=== PATIENT | female | born 1930 | race Asian ===

== ENCOUNTER 2017-02-03 13:46 | Inpatient (IN) | payer MEDICARE, OTHER ==
[~2017-02-03] VITALS: Ht 152.4 cm; Wt 63.5 kg
[2017-02-03] MEDS ORDERED: Acetaminophen 650 MG SUPP RECTAL ONE ×2 (13:55→14:15)
--- NOTE | 2017-02-03 13:57 | Emergency Room Report ---
History of Present Illness General Chief Complaint: Dyspnea/Respdistress Source: Patient Present Illness HPI The patient is a 86-year-old female sent in by fpc for increased difficulty breathing and fever. Patient had been brought in by EMS. Patient had been noted be febrile with a temperature of 103. She had reportedly been having increased difficulty breathing or started on supplemental oxygen by paramedics. The patient was reportedly DO NOT RESUSCITATE. The patient had a fever since earlier in the day. Patient was followed at [facility]. Dr. Dave had previously contact hospital regarding the patient. Allergies: Coded Allergies: No Known Allergies (Unverified , 02/03/17) Patient History Past Medical History: see triage record Reviewed Nursing Documentation: PMH: Agreed, PSxH: Agreed Review of Systems All Other Systems: negative except mentioned in HPI Physical Exam Vital Signs Date Time Temp Pulse Resp B/P Pulse Ox O2 Delivery O2 Flow Rate FiO2 02/03/17 13:46 132 25 82/40 90 Non-Rebreather 15.0 General Appearance: alert, severe distress, Chronically Ill, Stupor ENT: normal pharynx Neck: supple, thyroid normal Respiratory: respiratory distress Cardiovascular #1: tachycardia, edema Gastrointestinal: normal inspection, soft Musculoskeletal: decreased range of motion Neurologic: aphasia, motor weakness Psychiatric: normal inspection, no delusions Skin: normal inspection, normal color Procedures Critical Care Time Critical Care Time Patient had a critical medical condition which untreated could potentially result in life or limb threatening injury. Total critical care time excluding procedures approximately 45 minutes. Medical Decision Making Diagnostic Impression: Primary Impression: Severe sepsis Additional Impressions: Lactic acidosis Hyperglycemia ER Course Patient presented for fever shortness of breath. Differential diagnosis included wasn't limited to pneumonia, pulmonary embolism, severe sepsis, urinary tract infection, osteomyelitis among others.Because of complexity of patient's case laboratory testing and imaging studies were ordered. EKG interpretation sinus tachycardia R [address] changes which are likely related to patient's rate. The patient was given Tylenol. A blood cultures and lactic acid are obtained. Patient was given empiric IV antibiotics.She started on BiPAP.Dr. Dave was contacted for inpatient managementPatient was noted to have markedly elevate blood sugar and was given IV insulin. Laboratory testing was notable for sugar greater than 900 Labs Test 02/03/17 14:00 02/03/17 15:30 White Blood Count 15.3 K/UL (4.8-10.8) Red Blood Count 4.77 M/UL (4.20-5.40) Hemoglobin 15.9 G/DL (12.0-16.0) Hematocrit 48.5 % (37.0-47.0) Mean Corpuscular Volume 102 FL (80-99) Mean Corpuscular Hemoglobin 33.4 PG (27.0-31.0) Mean Corpuscular Hemoglobin Concent 32.8 G/DL (32.0-36.0) Red Cell Distribution Width 11.5 % (11.6-14.8) Platelet Count 161 K/UL (150-450) Mean Platelet Volume 8.4 FL (6.5-10.1) Neutrophils (%) (Auto) 84.2 % (45.0-75.0) Lymphocytes (%) (Auto) 9.3 % (20.0-45.0) Monocytes (%) (Auto) 6.2 % (1.0-10.0) Eosinophils (%) (Auto) 0.0 % (0.0-3.0) Basophils (%) (Auto) 0.2 % (0.0-2.0) Sodium Level 145 mEQ/L (135-145) Potassium Level 5.2 mEQ/L (3.4-4.9) Chloride Level 103 mEQ/L (98-107) Carbon Dioxide Level 19 mEQ/L (20-30) Anion Gap 23 (5-15) Blood Urea Nitrogen 62 mg/dL (7-23) Creatinine 2.0 mg/dL (0.5-0.9) Estimat Glomerular Filtration Rate mL/min (>60) Glucose Level 953 mg/dL (74-106) Hemoglobin A1c 11.1 % (< 6.0) Calcium Level 9.8 mg/dL (8.6-10.2) Phosphorus Level 4.4 mg/dL (2.5-4.8) Magnesium Level 2.8 mg/dL (1.7-2.5) Total Bilirubin 1.2 mg/dL (0.0-1.2) Direct Bilirubin 0.3 mg/dL (0.1-0.3) Aspartate Amino Transf (AST/SGOT) 30 U/L (5-40) Alanine Aminotransferase (ALT/SGPT) 26 U/L (3-33) Alkaline Phosphatase 95 U/L (35-104) Total Creatine Kinase 301 U/L (26-140) Creatine Kinase MB 3.7 ng/mL (< 3.8) Creatine Kinase MB Relative Index 1.2 Troponin I < 0.30 ng/mL (<=0.30) Pro-B-Type Natriuretic Peptide 3632 pg/mL (0-450) Total Protein 8.4 g/dL (6.6-8.7) Albumin 4.4 g/dL (3.5-5.2) Globulin 4.0 g/dL Albumin/Globulin Ratio 1.1 (1.0-2.7) Urine Color Pale yellow Urine Appearance Clear Urine pH 5 (4.5-8.0) Urine Specific [place] 1.010 (1.005-1.035) Urine Protein Negative (NEGATIVE) Urine Glucose (UA) 4+ (NEGATIVE) Urine Ketones Negative (NEGATIVE) Urine Occult Blood 1+ (NEGATIVE) Urine Nitrite Negative (NEGATIVE) Urine Bilirubin Negative (NEGATIVE) Urine Urobilinogen Normal MG/DL (0.0-1.0) Urine Leukocyte Esterase Negative (NEGATIVE) Urine RBC 0-2 /HPF (0 - 2) Urine WBC 0-2 /HPF (0 - 2) Urine Squamous Epithelial Cells Occasional /LPF Urine Bacteria Occasional /HPF (NONE) Lactic Acid Level 3.00 mmol/L (0.66-2.22) EKG Diagnostic Results Rate: tachycardiac Rhythm: NSR ST Segments: no acute changes ASA given to the pt in ED: No Rhythm Strip Diag. Results EP Interpretation: yes Rhythm: no PVC's, no ectopy, other - sinus tachycardia Last Vital Signs Date Time Temp Pulse Resp B/P Pulse Ox O2 Delivery O2 Flow Rate FiO2 02/03/17 13:46 132 25 82/40 90 Non-Rebreather 15.0 Status: unchanged Disposition: ADMITTED INPATIENT Condition: Critical Guillermo Cox Feb 03, 2017 13:57
[2017-02-03] MEDS ORDERED: Cefepime 1gm vial ONE (13:58)
[2017-02-03] MEDS ORDERED: metroNIDAZOLE 500mg 100 ML IV SCH (14:00)
[2017-02-03] MEDS ORDERED: Vancomycin 1 GM in NS 275 ML IV ONE (14:00)
[2017-02-03] MEDS ORDERED: Cefepime HCl 1 GM in NS 55 ML IV SCH (14:00)
[2017-02-03] MEDS ORDERED: FLEET ENEMA133 ML RECTAL (14:04)
[2017-02-03] MEDS ORDERED: DUONEB 0.5-3(2.53 ML HHN (14:04)
[2017-02-03] MEDS ORDERED: DULCOLAX10 MG RC (14:04)
[2017-02-03] MEDS ORDERED: DOCUSATE SODIU100 MG ORAL (14:04)
[2017-02-03] MEDS ORDERED: ATORVASTATIN CA20 MG ORAL (14:04)
[2017-02-03] MEDS ORDERED: MILK OF MA2400 MG/10 ORAL (14:06)
[2017-02-03] MEDS ORDERED: IBUPROFEN200 MG ORAL (14:06)
[2017-02-03] MEDS ORDERED: LOSARTAN POTASS25 MG ORAL (14:06)
[2017-02-03] MEDS ORDERED: NORCO 5-325 TA1 EAC1 ORAL (14:07)
[2017-02-03] MEDS ORDERED: ROBITUSSIN COU237 M1 PO (14:07)
[2017-02-03] MEDS ORDERED: MULTIVITAMINS1 EAC8 ORAL (14:07)
[2017-02-03] MEDS ORDERED: NAMENDA10 MG ORAL (14:07)
[2017-02-03] MEDS ORDERED: ACETAMINOPHEN325 M1 ORAL (14:08)
[2017-02-03] MEDS ORDERED: Vancomycin 1gm inj IVPB ONE (14:23)
[2017-02-03 14:35] LABS: BASOPHILS % (AUTO) 0.2 % (0.0-2.0); LYMPHOCYTES % (AUTO) 9.3 % (20.0-45.0); MEAN CORPUSCULAR HEMOGLOBIN 33.4 PG (27.0-31.0); MEAN CORPUSCULAR HGB CONC 32.8 G/DL (32.0-36.0); MEAN CORPUSCULAR VOLUME 102 FL (80-99); MEAN PLATELET VOLUME 8.4 FL (6.5-10.1); MONOCYTES % (AUTO) 6.2 % (1.0-10.0); NEUTROPHILS % (AUTO) 84.2 % (45.0-75.0); PLATELET COUNT 161 K/UL (150-450); RED BLOOD COUNT 4.77 M/UL (4.20-5.40); RED CELL DISTRIBUTION WIDTH 11.5 % (11.6-14.8); WHITE BLOOD COUNT 15.3 K/UL (4.8-10.8)
[2017-02-03 14:49] LABS: TROPONIN I < 0.30 ng/mL (<=0.30)
[2017-02-03 14:54] LABS: ALANINE AMINOTRANSFERASE 26 U/L (3-33); ASPARTATE AMINO TRANSFERASE 30 U/L (5-40); CALCIUM 9.8 mg/dL (8.6-10.2); CHLORIDE 103 mEQ/L (98-107); PHOSPHORUS 4.4 mg/dL (2.5-4.8); POTASSIUM 5.2 mEQ/L (3.4-4.9); REFLEX LACTIC ACID YES OR NO YES; SODIUM 145 mEQ/L (135-145)
--- NOTE | 2017-02-03 14:54 | Diagnostic Imaging Report ---
Indication: Dyspnea Comparison: None A single view chest radiograph was obtained. Findings: Heart size is normal. Aorta is ectatic. Bones are osteopenic. Interstitial prominence noted centrally. No definite airspace disease identified. Impression: No acute disease
[2017-02-03 14:55] VITALS: BP 143/82
[2017-02-03 15:02] LABS: ALBUMIN/GLOBULIN RATIO 1.1 (1.0-2.7); ANION GAP 23 (5-15); CARBON DIOXIDE 19 mEQ/L (20-30); MAGNESIUM 2.8 mg/dL (1.7-2.5); TOTAL PROTEIN 8.4 g/dL (6.6-8.7)
[2017-02-03] MEDS ORDERED: NS 1000ml 1,900 ML IVLG ONE (15:15)
[2017-02-03 15:16] LABS: CKMB 3.7 ng/mL (< 3.8)
[2017-02-03 15:36] LABS: BILIRUBIN,DIRECT 0.3 mg/dL (0.1-0.3); HEMOLYSIS 8
[2017-02-03 15:53] LABS: APPEARANCE,URINE CLEAR; KETONES,URINE NEGATIVE (NEGATIVE); LEUKOCYTE ESTERASE ,URINE NEGATIVE (NEGATIVE); NITRITE,URINE NEGATIVE (NEGATIVE); PH,URINE 5 (4.5-8.0); PROTEIN,URINE NEGATIVE (NEGATIVE); UROBILINOGEN,URINE NORMAL MG/DL (0.0-1.0)
[2017-02-03 16:12] LABS: RBC,URINE 0-2 /HPF (0 - 2)
[2017-02-03 16:13] LABS: BACTERIA,URINE OCCASIONAL /HPF; SQUAMOUS EPITHELIAL CELL,UR OCCASIONAL /LPF (NONE/OCC); WBC,URINE 0-2 /HPF (0 - 2)
[2017-02-03 16:59] VITALS: BP 103/58
[2017-02-03 17:00] VITALS: BP 94/57
[2017-02-03 20:00] VITALS: BP 98/45
[2017-02-03] MEDS ORDERED: Digoxin 0.5mg/2ml Inj IVP ONE (21:15)
[2017-02-03] MEDS ORDERED: NS 250 ML IVPB ONE (21:15)
[2017-02-03] MEDS: Vitamin A&D Oint 2oz Tube TOPIC SCH (21:38)
[2017-02-03] MEDS: NovoLOG Insulin Flexpen SUBQ SCH (22:24)
[2017-02-04] VITALS: BP 154/69
[2017-02-04] MEDS: NovoLOG Insulin Flexpen SUBQ SCH ×7 (01:00→21:17)
[2017-02-04] MEDS: D5 1/2NS 1,000 ML IV SCH ×3 (01:09→17:10)
[2017-02-04] MEDS: Pantoprazole Inj IVP SCH ×2 (01:12→09:10)
[2017-02-04] MEDS: Levemir Flexpen SUBQ SCH ×2 (01:19→21:16)
--- NOTE | 2017-02-04 02:15 | Consultation ---
DATE OF CONSULTATION: 02/03/2017 CARDIOLOGY CONSULTATION CONSULTING PHYSICIAN: Bradly Dave M.D. REQUESTING PHYSICIAN: Harjeet Leija M.D. REASON FOR CONSULTATION: Tachyarrhythmias. HISTORY OF PRESENT ILLNESS: This is an 86-year-old [place] female, who was transferred to the hospital from a half-way facility because of respiratory distress and high fevers. She was febrile to 103 on arrival with tachypnea and hypoxia. Advanced directives for DNR DNI were noted. She was placed on BiPAP support. The patient was treated in the intensive care unit with volume resuscitation. She was pancultured and started on broad-spectrum antibiotics. She continues to have heart rates up to 170 and I have been asked to assist with care. PAST MEDICAL HISTORY: Status post pubic ramus fracture, hypertension, type 2 diabetes mellitus, hyperlipidemia, and cerebrovascular disease with dementia. MEDICATIONS: Prior to admission, reviewed and reconciled in the retirement record. ALLERGIES: None. FAMILY HISTORY: Not known. SOCIAL HISTORY: No record of smoking, alcohol, or substance abuse. REVIEW OF SYSTEMS: Not obtainable from patient. Limited data was obtained from son. Additional data was obtained from review of records x20 minutes. PHYSICAL EXAMINATION: GENERAL: Withdrawn and lethargic on BiPAP support. VITAL SIGNS: Blood pressure 80/40, pulse 165, respiratory rate 25, temperature max 103, and oxygen saturation 98%. LUNGS: Accessory muscle use. Coarse breath sounds with rhonchi. CARDIAC: Regular rhythm. Rapid rate. Normal S1 and S2. ABDOMEN: Soft, slightly tender and distended. EXTREMITIES: With trace edema and decreased capillary refill. No skin breakdown is seen. LABORATORY AND DIAGNOSTIC DATA: White count 15 and hemoglobin 15.9. Lactic acid is 4.1. Glucose 953, BUN 62, creatinine 2.0, bicarbonate 19, sodium 145, and potassium 5.2. Magnesium 2.8. Pro-natriuretic peptide 3632. Albumin 4.4. EKG, sinus tachycardia with nonspecific ST-T wave changes. Monitored rhythm, at times is notable for SVT. IMPRESSION: 1. Hyperosmolar non-ketotic coma. 2. Lactic acidosis. 3. Acute renal failure. 4. Hyperkalemia. 5. Metabolic acidosis. 6. Acute diastolic congestive heart failure. 7. Anemia. 8. Probable sepsis. 9. Hypovolemia. 10. Dehydration. 11. Shock. PLAN: 1. Volume resuscitation. 2. Electrolyte replacement. 3. IV insulin support. 4. No diuresis at this time. 5. Serial lactic acid levels. 6. Start insulin therapy by IV route, followed by subcutaneous therapy. 7. DVT and stress ulcer prophylaxis. 8. Check serial troponin levels. 9. Empiric antibiotics have already been started. 10. Condition remains critical and prognosis is guarded. Bradly Dave M.D. DR: BRIAN JOB#: [id number] CC:
[2017-02-04 04:00] VITALS: BP 100/64
[2017-02-04 05:46] LABS: BASOPHILS % (AUTO) 0.5 % (0.0-2.0); LYMPHOCYTES % (AUTO) 16.9 % (20.0-45.0); MEAN CORPUSCULAR HEMOGLOBIN 33.1 PG (27.0-31.0); MEAN CORPUSCULAR HGB CONC 33.7 G/DL (32.0-36.0); MEAN CORPUSCULAR VOLUME 98 FL (80-99); MONOCYTES % (AUTO) 7.4 % (1.0-10.0); NEUTROPHILS % (AUTO) 75.1 % (45.0-75.0); PLATELET COUNT 136 K/UL (150-450); RED BLOOD COUNT 4.42 M/UL (4.20-5.40); RED CELL DISTRIBUTION WIDTH 11.6 % (11.6-14.8); WHITE BLOOD COUNT 15.1 K/UL (4.8-10.8)
[2017-02-04 06:22] LABS: REFLEX LACTIC ACID YES OR NO YES
[2017-02-04 06:54] LABS: ALANINE AMINOTRANSFERASE 22 U/L (3-33); ALBUMIN/GLOBULIN RATIO 0.9 (1.0-2.7); ANION GAP 16 (5-15); ASPARTATE AMINO TRANSFERASE 35 U/L (5-40); CARBON DIOXIDE 18 mEQ/L (20-30); CHLORIDE 125 mEQ/L (98-107); CREATININE 1.4 mg/dL (0.5-0.9); HEMOLYSIS 7; MAGNESIUM 2.7 mg/dL (1.7-2.5); PHOSPHORUS 1.6 mg/dL (2.5-4.8); SODIUM 159 mEQ/L (135-145); TOTAL PROTEIN 7.4 g/dL (6.6-8.7)
[2017-02-04 07:08] LABS: TROPONIN I 0.43 ng/mL (<=0.30)
[2017-02-04 07:27] LABS: BILIRUBIN,DIRECT 0.2 mg/dL (0.1-0.3)
[2017-02-04 08:00] VITALS: BP 128/72
[2017-02-04] MEDS: Vitamin A&D Oint 2oz Tube TOPIC SCH ×2 (09:10→21:17)
[2017-02-04 09:20] LABS: ABG PCO2 41.3 mmHg (35.0-45.0)
[2017-02-04 09:21] LABS: ABG ALLEN TEST POSITIVE; ABG BASE EXCESS -3.9
--- NOTE | 2017-02-04 11:15 | History and Physical Report ---
DATE OF ADMISSION: 02/03/2017 CHIEF COMPLAINT: Sepsis, respiratory failure, and SVT. HISTORY OF PRESENT ILLNESS: The patient is an elderly female. She has a history of hypertension, diabetes, hyperlipidemia, stroke and dementia. She was transferred from half-way facility with complaints of shortness of breath. She was noted to be afebrile, tachypneic, and hypoxic. On arrival in the emergency room, she was placed on BiPAP for respiratory support. She is a DNR/DNI. The patient was pancultured and was started on broad-spectrum antibiotic therapy. She has been started on IV hydration. She is now admitted for further evaluation and care. The patient's lactic acid level was elevated at 3.8. She also had an elevated troponin 0.23. She has sinus tach on monitor currently. PAST MEDICAL HISTORY: As above. PAST SURGICAL HISTORY: None. CURRENT MEDICATIONS: Reconciled and reviewed. ALLERGIES: None. FAMILY HISTORY: Unknown. SOCIAL HISTORY: There is no known history of tobacco, ethanol, or drugs. REVIEW OF SYSTEMS: Unobtainable as the patient is confused, somnolent, and lethargic. PHYSICAL EXAMINATION: VITAL SIGNS: Temperature was 103.1, pulse 132, respirations 25, and blood pressure 82/40. GENERAL: The patient is chronically appearing female, in no apparent distress. She is awake. She is arousable, but otherwise fairly somnolent and quickly falls back to sleep. HEENT: The oropharynx is clear. Mucous members are dry. NECK: Supple. HEART: Tachycardiac. LUNGS: Significant for scattered rhonchi. ABDOMEN: Soft, nontender, and nondistended. EXTREMITIES: Without clubbing, cyanosis, or edema. LABORATORY AND DIAGNOSTIC DATA: UA was negative. White count 15,000, hemoglobin 15, hematocrit 48, and platelets of 161,000. Sodium is 159, potassium 3, chloride 125, bicarb 18, BUN 51, and creatinine was 1.4. Troponin was 0.43. A1c was 11.1. Lactic acid was 3.8. Chest x-ray was clear. ASSESSMENT: This is an unfortunate elderly female with history of diabetes, hypertension, and stroke admitted with complaints of sepsis, suspect secondary to pneumonia: 1. Sepsis. 2. Shock. 3. Supraventricular tachycardia. 4. Pneumonia. 5. Dehydration. 6. Acute renal failure. PLAN: Aggressive fluid resuscitation with hypotonic fluids. Intravenous antibiotic therapy. Follow up cultures. Continue BiPAP. Continue respiratory treatments. Follow up cultures. Monitor troponin. Cardiology, Pulmonary, and Infectious Disease consultation will be obtained. Harjeet Leija M.D. DR: MORIAH JOB#: [id number] CC:
[2017-02-04 12:00] VITALS: BP 144/85
[2017-02-04 16:00] VITALS: BP 142/79
--- NOTE | 2017-02-04 16:33 | Cardiology Report ---
APPROVED REPORT EKG Measurement Heart [id number] Sinus tachycardia Otherwise normal ECG
[2017-02-04 16:59] LABS: ALANINE AMINOTRANSFERASE 22 U/L (3-33); ALBUMIN/GLOBULIN RATIO 1.1 (1.0-2.7); ANION GAP 9 (5-15); ASPARTATE AMINO TRANSFERASE 35 U/L (5-40); CALCIUM 8.6 mg/dL (8.6-10.2); CARBON DIOXIDE 23 mEQ/L (20-30); CHLORIDE 123 mEQ/L (98-107); HEMOLYSIS 7; SODIUM 155 mEQ/L (135-145); TOTAL PROTEIN 6.3 g/dL (6.6-8.7)
--- NOTE | 2017-02-04 19:00 | Wound Care Consultation ---
Wound Assessment Wound Assessment #1: Wound Present on Admission: Yes New Wound: No Status Change of Wound: No Wound Location Body Site Modif: mid Wound Location Body Site: sacral Wound Type: pressure ulcer Bj Test: Does not Bj Pressure Ulcer Stage: II - scattered Wound Thickness: Partial Thickness Wound Length: 4.5 Wound Width: 4.5 Wound Depth: less than 0.1 Percent of Wound [place]/Red: 100 Wound Drainage Description: Serosanguineous Wound Drainage Amount: Scant Wound Drainage Odor: None/Absent Tissue Surrounding Wound: Erythemic - purple Wound General Appearance: Reddened Wound Assessment #2: Wound Number: #2 Wound Present on Admission: Yes New Wound: No Status Change of Wound: No Wound Location Body Site Modif: left, right Wound Location Body Site: buttocks Wound Type: pressure ulcer Bj Test: Does not Bj Pressure Ulcer Stage: II - scattered Wound Thickness: Partial Thickness Percent of Wound [place]/Red: 100 Wound Drainage Description: Serosanguineous Wound Drainage Amount: Scant Wound Drainage Odor: None/Absent Tissue Surrounding Wound: Erythemic - purple Wound General Appearance: Reddened Wound Assessment #3: Wound Number: #3 Wound Present on Admission: Yes New Wound: No Status Change of Wound: No Wound Location Body Site: perineal area - extended to sacral,left and right buttock Wound Type: rash Bj Test: Does not Bj Percent of Wound [place]/Red: 100 Wound Drainage Amount: None Wound Drainage Odor: None/Absent Tissue Surrounding Wound: Erythemic Wound General Appearance: Reddened Wound Comment #1 Sacral scattered stage II pressure ulcer. Surrounding skin with purple DTI pressure ulcer #2 Right and left buttocks scattered stage II pressure ulcer. Surrounding skin with purple DTI pressure ulcer #3 Rashes on sacral, right and left buttocks. Recommendation -Sacral scattered stage II pressure ulcer. Surrounding skin with purple DTI pressure ulcer and Right and left buttocks scattered stage II pressure ulcer. Surrounding skin with purple DTI pressure ulcer Cleanse with saline, pat dry, apply Triad cream, cover with bordered gauze daily and PRN soiled/dislodged -Rashes on sacral, right and left buttocks Local wound care per protocol for rashes -Keep clean and dry -Turn and reposition -Low air loss SPR mattress -Offload both heels -Heel protector on both heels -Optimize nutrition -Assess and f/u accordingly for any changes FAINA FRANCOIS RN Feb 04, 2017 19:00
[2017-02-04 20:28] VITALS: BP 149/77
[2017-02-05 00:39] VITALS: BP 138/73
--- NOTE | 2017-02-05 01:45 | Progress Note ---
DATE: 02/04/2017 CARDIOLOGY PROGRESS NOTE SUBJECTIVE: The patient is more alert, still withdrawn and lethargic. Still on BiPAP support. Monitored rhythm, sinus tachycardia. OBJECTIVE: VITAL SIGNS: Blood pressure 149/77, pulse 76, and respirations 17. Afebrile. NECK: Jugular venous pressure flat. LUNGS: With coarse breath sounds. CARDIAC: Regular rhythm. Rapid rate. Normal S1 and S2. ABDOMEN: Soft. EXTREMITIES: With trace edema. LABORATORY DATA: White count 15, hemoglobin 14.6. Lactic acid is decreased from 3.8 to 1.7 which is now normal. Albumin 3.3. Sodium 155, potassium 4, chloride 123, bicarb 23, BUN 44, creatinine 1, and glucose 239. IMPRESSION: 1. Hyperosmolar nonketotic coma, improved. 2. Lactic acidosis, resolved. 3. Probable sepsis. 4. Severe dehydration. 5. Hypernatremia. 6. Hyperchloremia. 7. Acute renal failure with prerenal azotemia. 8. Acute myocardial ischemia. 9. Mild protein-calorie malnutrition. 10. Sepsis with shock recovering. PLAN: 1. fluid hydration. 2. Empiric antibiotics. 3. BiPAP support. 4. Replace electrolytes as needed. 5. Repeat troponin level. 6. Add beta-blockade if blood pressure parameters remained stable. 7. DVT and stress ulcer prophylaxis. Bradly Dave M.D. DR: NICOLE JOB#: [id number] CC:
[2017-02-05 04:00] VITALS: BP 139/72
[2017-02-05 05:07] LABS: MEAN CORPUSCULAR HEMOGLOBIN 32.9 PG (27.0-31.0); MEAN CORPUSCULAR HGB CONC 33.5 G/DL (32.0-36.0); MEAN CORPUSCULAR VOLUME 98 FL (80-99); MEAN PLATELET VOLUME 9.8 FL (6.5-10.1); PLATELET COUNT 96 K/UL (150-450); RED BLOOD COUNT 3.96 M/UL (4.20-5.40); RED CELL DISTRIBUTION WIDTH 11.5 % (11.6-14.8); WHITE BLOOD COUNT 10.4 K/UL (4.8-10.8)
[2017-02-05 05:42] LABS: ALANINE AMINOTRANSFERASE 21 U/L (3-33); ALBUMIN/GLOBULIN RATIO 1.2 (1.0-2.7); ANION GAP 10 (5-15); ASPARTATE AMINO TRANSFERASE 32 U/L (5-40); CALCIUM 8.3 mg/dL (8.6-10.2); CARBON DIOXIDE 23 mEQ/L (20-30); CHLORIDE 117 mEQ/L (98-107); CREATININE 0.8 mg/dL (0.5-0.9); HEMOLYSIS 7; POTASSIUM 3.6 mEQ/L (3.4-4.9); SODIUM 150 mEQ/L (135-145); TOTAL PROTEIN 5.8 g/dL (6.6-8.7)
[2017-02-05 05:45] LABS: TROPONIN I < 0.30 ng/mL (<=0.30)
[2017-02-05] MEDS: NovoLOG Insulin Flexpen SUBQ SCH ×4 (06:21→20:18)
[2017-02-05 08:00] VITALS: BP_SYST 136; BP_SYST 168; BP_DIAS 71; BP_DIAS 75
--- NOTE | 2017-02-05 08:10 | General Progress Note ---
Assessment/Plan Problem List: (1) Aspiration pneumonia ICD Codes: J69.0 - Pneumonitis due to inhalation of food and vomit SNOMED: 833487198 (2) Hypernatremia ICD Codes: E87.0 - Hyperosmolality and hypernatremia SNOMED: 48244307 (3) Respiratory failure ICD Codes: J96.90 - Respiratory failure, unspecified, unspecified whether with hypoxia or hypercapnia SNOMED: 692353305 (4) Lactic acidosis ICD Codes: E87.2 - Acidosis SNOMED: 09657386 (5) Hyperglycemia ICD Codes: R73.9 - Hyperglycemia, unspecified SNOMED: 16470155 (6) Severe sepsis ICD Codes: A41.9 - Sepsis, unspecified organism; R65.20 - Severe sepsis without septic shock SNOMED: 37900338 Status: stable, progressing Assessment/Plan check abg dc trinh iv abx ivf follow cultures check swallow Subjective ROS Limited/Unobtainable: Yes Constitutional: Reports: malaise, weakness HEENT: Reports: no symptoms Cardiovascular: Reports: no symptoms Respiratory: Reports: cough, shortness of breath, sputum Gastrointestinal/Abdominal: Reports: no symptoms Genitourinary: Reports: no symptoms Neurologic/Psychiatric: Reports: pre-existing deficit Endocrine: Reports: no symptoms Hematologic/Lymphatic: Reports: anemia Allergies: Coded Allergies: No Known Allergies (Unverified , 02/03/17) All Systems: reviewed and negative except above Subjective better this am. off bipap. labs noted. no fevers. remains withdrawn, somnolent. Objective Last 24 Hour Vital Signs Date Time Temp Pulse Resp B/P Pulse Ox O2 Delivery O2 Flow Rate FiO2 02/05/17 07:47 Nasal Cannula 2.0 28 02/05/17 07:47 95 Nasal Cannula 2.0 28 02/05/17 04:00 98.1 76 18 139/72 98 Venturi Mask 02/05/17 03:48 71 02/05/17 01:10 Venturi Mask 10.0 45 02/05/17 00:39 97.2 68 19 138/73 99 Venturi Mask 02/05/17 00:00 79 02/04/17 20:28 98.1 76 17 149/77 99 Venturi Mask 02/04/17 20:27 98.1 76 17 99 02/04/17 19:40 Venturi Mask 10.0 45 02/04/17 19:39 97 Venturi Mask 10.0 45 02/04/17 18:55 79 02/04/17 16:00 15.0 45 02/04/17 16:00 98.1 79 17 142/79 99 Venturi Mask 45 02/04/17 16:00 77 02/04/17 14:54 Venturi Mask 10.0 45 02/04/17 14:53 97 Venturi Mask 10.0 45 02/04/17 12:40 82 16 99 Full Face 45 02/04/17 12:01 82 02/04/17 12:00 15.0 45 02/04/17 12:00 97.4 82 15 144/85 99 Bi-pap 45 02/04/17 11:19 84 22 99 Full Face 45 02/04/17 09:23 80 14 99 Facial 45 Intake and Output 02/04/17 02/05/17 19:00 07:00 Intake Total 1350 ml 1308 ml Output Total 450 ml 450 ml Balance 900 ml 858 ml IV Total 1350 ml 1308 ml Output Urine Total 450 ml 450 ml Laboratory Tests 02/04/17 09:10: Arterial Blood pH 7.338L, Arterial Blood Partial Pressure CO2 41.3, Arterial Blood Partial Pressure O2 112.4H, Arterial Blood HCO3 21.7L, Arterial Blood Oxygen Saturation 97.7, Arterial Blood Base Excess -3.9, Ferny Test Positive 02/04/17 10:15: Lactic Acid Level 1.70 02/04/17 16:00: Sodium Level 155H, Potassium Level 4.0, Chloride Level 123H, Carbon Dioxide Level 23, Anion Gap 9, Blood Urea Nitrogen 44H, Creatinine 1.0H, Estimat Glomerular Filtration Rate , Glucose Level 239H, Calcium Level 8.6, Total Bilirubin 0.9, Aspartate Amino Transf (AST/SGOT) 35, Alanine Aminotransferase ( ALT/SGPT) 22, Alkaline Phosphatase 52, Total Protein 6.3L, Albumin 3.3L, Globulin 3.0, Albumin/Globulin Ratio 1.1 02/05/17 04:05: Sodium Level 150H, Potassium Level 3.6, Chloride Level 117H, Carbon Dioxide Level 23, Anion Gap 10, Blood Urea Nitrogen 35H, Creatinine 0.8, Estimat Glomerular Filtration Rate , Glucose Level 274H, Calcium Level 8.3L, Total Bilirubin 0.9, Aspartate Amino Transf (AST/SGOT) 32, Alanine Aminotransferase ( ALT/SGPT) 21, Alkaline Phosphatase 49, Total Protein 5.8L, Albumin 3.2L, Globulin 2.6, Albumin/Globulin Ratio 1.2, White Blood Count 10.4, Red Blood Count 3.96L, Hemoglobin 13.1, Hematocrit 38.9, Mean Corpuscular Volume 98, Mean Corpuscular Hemoglobin 32.9H, Mean Corpuscular Hemoglobin Concent 33.5, Red Cell Distribution Width 11.5L, Platelet Count 96L, Mean Platelet Volume 9.8, Neutrophils (%) (Auto) , Lymphocytes (%) (Auto) , Monocytes (%) (Auto) , Eosinophils (%) (Auto) , Basophils (%) (Auto) , Troponin I < 0.30 Height (Feet): 5 Height (Inches): 0.00 Weight (Pounds): 140 General Appearance: WD/WN, lethargic, confused Neck: non-tender, normal alignment, supple Cardiovascular: normal rate, regular rhythm Respiratory/Chest: chest wall non-tender, lungs clear, normal breath sounds Abdomen: normal bowel sounds, non tender, soft, no organomegaly, no mass Edema: no edema noted Arm (L), no edema noted Arm (R), no edema noted Leg (L), no edema noted Leg (R), no edema noted Pedal (L), no edema noted Pedal (R), no edema noted Generalized YOKO OROZCO Feb 05, 2017 08:10
[2017-02-05 08:50] LABS: ABG ALLEN TEST POSITIVE; ABG BASE EXCESS -2.4; ABG PCO2 34.2 mmHg (35.0-45.0)
[2017-02-05] MEDS: Vitamin A&D Oint 2oz Tube TOPIC SCH ×2 (09:09→20:16)
[2017-02-05] MEDS: Pantoprazole Inj IVP SCH (09:09)
[2017-02-05 12:00] VITALS: BP 121/67
[2017-02-05] MEDS ORDERED: Vancomycin 750mg/D5W 275ml IVPB SCH ×2 (14:00)
[2017-02-05 16:00] VITALS: BP 128/61
[2017-02-05 20:00] VITALS: BP 127/61
[2017-02-05] MEDS: Levemir Flexpen SUBQ SCH (20:19)
[2017-02-06] VITALS: BP 132/70
--- NOTE | 2017-02-06 03:45 | Progress Note ---
DATE: 02/05/2017 CARDIOLOGY PROGRESS NOTE SUBJECTIVE: The patient is more alert and interactive. She is on nasal oxygen, off BiPAP. Swallow evaluation is pending. Glucose control is improving. Monitored rhythm sinus. OBJECTIVE: VITAL SIGNS: Blood pressure 139/72, pulse 76, respiratory rate 16, and afebrile. NECK: Supple. LUNGS: With good breath sounds. CARDIAC: Regular rhythm and rate. Normal S1 and S2 with a fourth heart sound. ABDOMEN: Soft. EXTREMITIES: Trace edema. LABORATORY DATA: White count 10.4 and hemoglobin 13.1. Sodium 150, potassium 3.6, bicarbonate 23, chloride 117, BUN 35, and creatinine 0.8. Albumin is 3.2. Troponin is negative. IMPRESSION: 1. Hyperosmolar nonketotic coma with severe hypoglycemia, improved. 2. Dehydration. 3. Hypernatremia, improving. 4. Hyperchloremia, improving. 5. Acute renal failure, resolving. 6. Mild protein-calorie malnutrition on supplements. 7. Hypertensive heart disease. 8. Acute respiratory insufficiency, resolved. 9. Acute myocardial ischemia, resolved. PLAN: 1. Continue hypotonic IV fluids. 2. Insulin titration. 3. Await swallow evaluation to resume diet and protein supplement to follow. 4. Empiric antibiotics. 5. DVT and stress ulcer prophylaxis. Bradly Dave M.D. DR: BRIAN JOB#: [id number] CC:
[2017-02-06 04:00] VITALS: BP 142/73
[2017-02-06 06:03] LABS: ALANINE AMINOTRANSFERASE 20 U/L (3-33); ALBUMIN/GLOBULIN RATIO 0.9 (1.0-2.7); ANION GAP 9 (5-15); ASPARTATE AMINO TRANSFERASE 28 U/L (5-40); CARBON DIOXIDE 26 mEQ/L (20-30); CHLORIDE 101 mEQ/L (98-107); CREATININE 0.7 mg/dL (0.5-0.9); POTASSIUM 3.1 mEQ/L (3.4-4.9); SODIUM 136 mEQ/L (135-145)
[2017-02-06] MEDS: NovoLOG Insulin Flexpen SUBQ SCH ×4 (06:15→20:46)
[2017-02-06 06:35] LABS: BILIRUBIN,DIRECT 0.3 mg/dL (0.1-0.3); HEMOLYSIS 12
--- NOTE | 2017-02-06 07:28 | General Progress Note ---
Assessment/Plan Problem List: (1) Aspiration pneumonia ICD Codes: J69.0 - Pneumonitis due to inhalation of food and vomit SNOMED: 653156380 (2) Hypernatremia ICD Codes: E87.0 - Hyperosmolality and hypernatremia SNOMED: 52339226 (3) Respiratory failure ICD Codes: J96.90 - Respiratory failure, unspecified, unspecified whether with hypoxia or hypercapnia SNOMED: 691205922 (4) Lactic acidosis ICD Codes: E87.2 - Acidosis SNOMED: 53160032 (5) Hyperglycemia ICD Codes: R73.9 - Hyperglycemia, unspecified SNOMED: 34154666 (6) Severe sepsis ICD Codes: A41.9 - Sepsis, unspecified organism; R65.20 - Severe sepsis without septic shock SNOMED: 90613509 Status: stable, progressing Assessment/Plan replace k dc trinh iv abx ivf until able to take po follow cultures check swallow Subjective ROS Limited/Unobtainable: Yes Constitutional: Reports: malaise, weakness HEENT: Reports: no symptoms Cardiovascular: Reports: no symptoms Respiratory: Reports: cough, shortness of breath Gastrointestinal/Abdominal: Reports: no symptoms Genitourinary: Reports: no symptoms Allergies: Coded Allergies: No Known Allergies (Unverified , 02/03/17) All Systems: reviewed and negative except above Subjective better this am. off bipapon nasal cannula. did not pass swallow eval. video ordered. labs noted- low k. no fevers. remains withdrawn, somnolent. Objective Last 24 Hour Vital Signs Date Time Temp Pulse Resp B/P Pulse Ox O2 Delivery O2 Flow Rate FiO2 02/06/17 04:00 97.9 70 19 142/73 97 Nasal Cannula 2.0 02/06/17 04:00 67 02/06/17 00:00 97.8 64 20 132/70 95 Room Air 02/06/17 00:00 67 02/05/17 20:29 Nasal Cannula 2.0 28 02/05/17 20:29 97 Nasal Cannula 2.0 28 02/05/17 20:00 60 02/05/17 20:00 98.2 63 20 127/61 96 Nasal Cannula 2.0 02/05/17 16:00 98.4 88 18 128/61 97 Nasal Cannula 2.0 02/05/17 16:00 70 02/05/17 13:48 Nasal Cannula 2.0 28 02/05/17 12:00 97.0 61 18 121/67 98 Nasal Cannula 2.0 02/05/17 12:00 69 02/05/17 08:00 96.8 70 18 136/71 97 Nasal Cannula 2.0 02/05/17 08:00 76 02/05/17 07:47 Nasal Cannula 2.0 28 02/05/17 07:47 95 Nasal Cannula 2.0 28 Intake and Output 02/05/17 02/06/17 19:00 07:00 Intake Total 1400.000 ml 1158.33 ml Output Total 500 ml 566 ml Balance 900.000 ml 592.33 ml IV Total 1400.000 ml 1158.33 ml Output Urine Total 500 ml 566 ml Laboratory Tests 02/05/17 08:35: Arterial Blood pH 7.416, Arterial Blood Partial Pressure CO2 34.2L, Arterial Blood Partial Pressure O2 85.4, Arterial Blood HCO3 21.5L, Arterial Blood Oxygen Saturation 96.4, Arterial Blood Base Excess -2.4, Ferny Test Positive 02/06/17 04:05: Sodium Level 136#, Potassium Level 3.1L, Chloride Level 101, Carbon Dioxide Level 26, Anion Gap 9, Blood Urea Nitrogen 18, Creatinine 0.7, Estimat Glomerular Filtration Rate , Glucose Level 242H, Calcium Level 8.0L, Total Bilirubin 1.6H, Direct Bilirubin 0.3, Aspartate Amino Transf (AST/SGOT) 28, Alanine Aminotransferase (ALT/SGPT) 20, Alkaline Phosphatase 60, Total Protein 6.0L, Albumin 2.9L, Globulin 3.1, Albumin/Globulin Ratio 0.9L Height (Feet): 5 Height (Inches): 0.00 Weight (Pounds): 140 General Appearance: WD/WN, alert, confused Neck: supple Cardiovascular: normal rate, regular rhythm Respiratory/Chest: chest wall non-tender, lungs clear, normal breath sounds, no respiratory distress Abdomen: normal bowel sounds, non tender, soft, no organomegaly Edema: no edema noted Arm (L), no edema noted Arm (R), no edema noted Leg (L), no edema noted Leg (R), no edema noted Pedal (L), no edema noted Pedal (R), no edema noted Generalized Neurologic: 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
[2017-02-06 08:00] VITALS: BP 137/72
[2017-02-06] MEDS: Pantoprazole Inj IVP SCH (08:11)
[2017-02-06] MEDS: Vitamin A&D Oint 2oz Tube TOPIC SCH ×2 (08:13→20:52)
[2017-02-06 12:00] VITALS: BP 156/92
[2017-02-06] MEDS ORDERED: Vancomycin 750mg/D5W 275ml IVPB SCH ×2 (14:00)
[2017-02-06 16:00] VITALS: BP 110/63
[2017-02-06 20:00] VITALS: BP 121/73
[2017-02-06] MEDS: Levemir Flexpen SUBQ SCH (20:45)
[2017-02-07] VITALS: BP 115/51
[2017-02-07 04:00] VITALS: BP 126/70
[2017-02-07] MEDS: NovoLOG Insulin Flexpen SUBQ SCH ×4 (05:40→21:32)
[2017-02-07] MEDS: Vancomycin 1.5gm/D5W 250ml 250 ML IVPB SCH (06:05)
[2017-02-07 07:35] LABS: ALANINE AMINOTRANSFERASE 21 U/L (3-33); ALBUMIN/GLOBULIN RATIO 1.1 (1.0-2.7); ANION GAP 13 (5-15); ASPARTATE AMINO TRANSFERASE 28 U/L (5-40); CALCIUM 8.6 mg/dL (8.6-10.2); CARBON DIOXIDE 25 mEQ/L (20-30); CHLORIDE 97 mEQ/L (98-107); CREATININE 0.7 mg/dL (0.5-0.9); HEMOLYSIS 10; POTASSIUM 3.3 mEQ/L (3.4-4.9); SODIUM 135 mEQ/L (135-145); TOTAL PROTEIN 6.3 g/dL (6.6-8.7)
[2017-02-07 07:52] LABS: BILIRUBIN,DIRECT 0.4 mg/dL (0.1-0.3)
[2017-02-07 08:00] VITALS: BP 120/72
[2017-02-07] MEDS: Vitamin A&D Oint 2oz Tube TOPIC SCH ×2 (08:26→21:27)
--- NOTE | 2017-02-07 08:55 | General Progress Note ---
Assessment/Plan Problem List: (1) Aspiration pneumonia ICD Codes: J69.0 - Pneumonitis due to inhalation of food and vomit SNOMED: 710788852 (2) Hypernatremia ICD Codes: E87.0 - Hyperosmolality and hypernatremia SNOMED: 37918171 (3) Respiratory failure ICD Codes: J96.90 - Respiratory failure, unspecified, unspecified whether with hypoxia or hypercapnia SNOMED: 319121947 (4) Lactic acidosis ICD Codes: E87.2 - Acidosis SNOMED: 31393465 (5) Hyperglycemia ICD Codes: R73.9 - Hyperglycemia, unspecified SNOMED: 91390518 (6) Severe sepsis ICD Codes: A41.9 - Sepsis, unspecified organism; R65.20 - Severe sepsis without septic shock SNOMED: 74254992 Status: stable Assessment/Plan replace k dc trinh iv abx ivf until able to take po follow cultures laxatives Subjective ROS Limited/Unobtainable: Yes Constitutional: Reports: malaise, weakness HEENT: Reports: no symptoms Cardiovascular: Reports: no symptoms Respiratory: Reports: cough, shortness of breath Gastrointestinal/Abdominal: Reports: constipated, difficulty swallowing Genitourinary: Reports: no symptoms Neurologic/Psychiatric: Reports: pre-existing deficit Endocrine: Reports: no symptoms Hematologic/Lymphatic: Reports: anemia Allergies: Coded Allergies: No Known Allergies (Unverified , 02/03/17) All Systems: reviewed and negative except above Subjective passed swallow. constipated. no BM since admit. low k noted. improving Objective Last 24 Hour Vital Signs Date Time Temp Pulse Resp B/P Pulse Ox O2 Delivery O2 Flow Rate FiO2 02/07/17 07:03 Nasal Cannula 2.0 28 02/07/17 07:03 98 Nasal Cannula 2.0 28 02/07/17 04:00 97.0 84 20 126/70 94 Nasal Cannula 2.0 02/07/17 04:00 77 02/07/17 00:00 84 02/07/17 00:00 97.2 80 18 115/51 95 Nasal Cannula 2.0 02/06/17 20:00 97.7 85 18 121/73 96 Nasal Cannula 2.0 02/06/17 20:00 89 02/06/17 19:29 99 Nasal Cannula 2.0 02/06/17 19:29 Nasal Cannula 2.0 02/06/17 16:00 97.3 80 20 110/63 96 Nasal Cannula 2.0 02/06/17 15:44 83 02/06/17 12:00 97.9 64 20 156/92 97 Nasal Cannula 2.0 02/06/17 11:52 68 Intake and Output 02/06/17 02/07/17 19:00 07:00 Intake Total 2050.000 ml 1777.007 ml Output Total 685 ml 2536 ml Balance 1365.000 ml -758.993 ml Intake Oral 110 ml IV Total 2050.000 ml 1667.007 ml Output Urine Total 685 ml 2536 ml Laboratory Tests 02/06/17 12:05: Vancomycin Level Trough 5.1 02/07/17 04:00: Sodium Level 135, Potassium Level 3.3L, Chloride Level 97L, Carbon Dioxide Level 25, Anion Gap 13, Blood Urea Nitrogen 9, Creatinine 0.7, Estimat Glomerular Filtration Rate , Glucose Level 251H, Calcium Level 8.6, Total Bilirubin 2.0H, Direct Bilirubin 0.4H, Aspartate Amino Transf (AST/SGOT) 28, Alanine Aminotransferase (ALT/SGPT) 21, Alkaline Phosphatase 63, Total Protein 6.3L, Albumin 3.4L, Globulin 2.9, Albumin/Globulin Ratio 1.1 Height (Feet): 5 Height (Inches): 0.00 Weight (Pounds): 140 Objective General Appearance: WD/WN, alert, confused Neck: supple Cardiovascular: normal rate, regular rhythm Respiratory/Chest: chest wall non-tender, lungs clear, normal breath sounds, no respiratory distress Abdomen: normal bowel sounds, non tender, soft, no organomegaly Edema: no edema noted Arm (L), no edema noted Arm (R), no edema noted Leg (L), no edema noted Leg (R), no edema noted Pedal (L), no edema noted Pedal (R), no edema noted 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
[2017-02-07 12:00] VITALS: BP 142/79
[2017-02-07 16:00] VITALS: BP 148/79
[2017-02-07] MEDS ORDERED: NS 275ml ONE (16:12)
[2017-02-07] MEDS ORDERED: Tubing IV Secondary IV ONE (16:12)
[2017-02-07 20:00] VITALS: BP 146/84
[2017-02-07] MEDS: Levemir Flexpen SUBQ SCH (21:31)
--- NOTE | 2017-02-07 23:00 | Progress Note ---
DATE: 02/06/2017 LATE ENTRY CARDIOLOGY PROGRESS NOTE: SUBJECTIVE: The patient is awake and alert, at baseline mentation, according to daughter. The patient is off BiPAP. No respiratory distress. The patient did not pass a swallow evaluation and video swallow study is pending for today. OBJECTIVE: VITAL SIGNS: Blood pressure is 142/73, pulse rate 70, respiratory rate 19, afebrile, and oxygen saturation on room air 95%. HEENT: Oropharynx clear. NECK: Supple. LUNGS: With few rhonchi. CARDIAC: Regular rhythm and rate. Normal S1 and S2 with a fourth heart sound. ABDOMEN: Soft. EXTREMITIES: Without edema. LABORATORY RESULTS: Sodium is 136, potassium 3.1, bicarbonate 26, BUN 18, creatinine 0.7 and glucose 242,. Albumin is 2.9. IMPRESSION: 1. Status post hyperglycemia with nonketotic coma. 2. Type 2 diabetes mellitus. 3. Hypokalemia. 4. Moderate protein-calorie malnutrition. 5. Hypertensive heart disease. 6. 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 7. Dysphagia. 8. Acute renal failure due to acute tubular necrosis, resolved. PLAN: 1. NPO, pending video swallow study. 2. Potassium replacement. 3. Protein supplement by feeding tube, this permitted. 4. Adjust insulin dosing and IV fluid rate. 5. Await video swallow study Bradly Dave M.D. DR: Jhoana JOB#: [id number] CC:
--- NOTE | 2017-02-07 23:30 | Progress Note ---
DATE: 02/07/2017 CARDIOLOGY PROGRESS NOTE SUBJECTIVE: The patient is without shortness of breath. She passed the swallow evaluation yesterday. Nutrition is initiated. Glucose control improved, but still suboptimal. OBJECTIVE: VITAL SIGNS: Blood pressure 126/70, heart rate 84, and respiratory rate 20. NECK: Supple. LUNGS: Clear. CARDIAC: Regular rhythm and rate. Normal S1 and S2 with a fourth heart sound. ABDOMEN: Soft. EXTREMITIES: No edema. LABORATORY DATA: Sodium 135, potassium 3.3, BUN 9, creatinine 0.7, bicarbonate 25, glucose 251, and albumin 3.4. IMPRESSION: 1. Status post . 2. Type 2 diabetes mellitus on insulin. 3. Hypokalemia. 4. Acute renal failure due to acute tubular necrosis, recovered. 5. Hypertensive heart disease. 6. Severe sepsis, recovering. PLAN: 1. Replace potassium. 2. Check magnesium. 3. Adjust insulin. 4. Complete antibiotic course. 5. Protein supplement. 6. Aspiration precautions. 7. Titrate cardiovascular regimen based on clinical parameters. Bradly Dave M.D. DR: BRIAN JOB#: [id number] CC:
[2017-02-08] VITALS (9 sets, daily range): BP systolic 86–142; BP diastolic 56–77
[2017-02-08 05:08] LABS: BASOPHILS % (AUTO) 0.6 % (0.0-2.0); EOSINOPHILS % (AUTO) 2.1 % (0.0-3.0); LYMPHOCYTES % (AUTO) 14.9 % (20.0-45.0); MEAN CORPUSCULAR HEMOGLOBIN 33.3 PG (27.0-31.0); MEAN CORPUSCULAR HGB CONC 35.6 G/DL (32.0-36.0); MEAN CORPUSCULAR VOLUME 93 FL (80-99); NEUTROPHILS % (AUTO) 74.4 % (45.0-75.0); PLATELET COUNT 133 K/UL (150-450); RED BLOOD COUNT 4.42 M/UL (4.20-5.40); RED CELL DISTRIBUTION WIDTH 10.6 % (11.6-14.8); WHITE BLOOD COUNT 10.3 K/UL (4.8-10.8)
[2017-02-08 05:25] LABS: ALANINE AMINOTRANSFERASE 26 U/L (3-33); ALBUMIN/GLOBULIN RATIO 0.9 (1.0-2.7); ANION GAP 13 (5-15); ASPARTATE AMINO TRANSFERASE 38 U/L (5-40); CALCIUM 8.9 mg/dL (8.6-10.2); CARBON DIOXIDE 28 mEQ/L (20-30); CHLORIDE 102 mEQ/L (98-107); CREATININE 0.7 mg/dL (0.5-0.9); HEMOLYSIS 7; MAGNESIUM 1.9 mg/dL (1.7-2.5); POTASSIUM 3.2 mEQ/L (3.4-4.9); SODIUM 143 mEQ/L (135-145); TOTAL PROTEIN 7.1 g/dL (6.6-8.7)
[2017-02-08] MEDS: Vancomycin 1.5gm/D5W 250ml 250 ML IVPB SCH (05:33)
[2017-02-08] MEDS: NovoLOG Insulin Flexpen SUBQ SCH ×4 (06:01→21:18)
[2017-02-08 06:22] LABS: BILIRUBIN,DIRECT 0.4 mg/dL (0.1-0.3)
[2017-02-08] MEDS: Vitamin A&D Oint 2oz Tube TOPIC SCH ×2 (08:53→21:15)
[2017-02-08] MEDS ORDERED: Aspirin Baby 81mg ORAL SCH (09:00)
[2017-02-08] MEDS ORDERED: Losartan 50mg tab ORAL SCH (09:00)
--- NOTE | 2017-02-08 09:19 | General Progress Note ---
Assessment/Plan Problem List: (1) Aspiration pneumonia ICD Codes: J69.0 - Pneumonitis due to inhalation of food and vomit SNOMED: 476838929 (2) Hypernatremia ICD Codes: E87.0 - Hyperosmolality and hypernatremia SNOMED: 23455203 (3) Respiratory failure ICD Codes: J96.90 - Respiratory failure, unspecified, unspecified whether with hypoxia or hypercapnia SNOMED: 355869113 (4) Lactic acidosis ICD Codes: E87.2 - Acidosis SNOMED: 03816227 (5) Hyperglycemia ICD Codes: R73.9 - Hyperglycemia, unspecified SNOMED: 14925048 (6) Severe sepsis ICD Codes: A41.9 - Sepsis, unspecified organism; R65.20 - Severe sepsis without septic shock SNOMED: 04134378 Assessment/Plan replace k iv abx monitor fluid status follow up cultures laxatives to tele Subjective ROS Limited/Unobtainable: No Constitutional: Reports: malaise, weakness HEENT: Reports: no symptoms Cardiovascular: Reports: no symptoms Respiratory: Reports: cough Gastrointestinal/Abdominal: Reports: difficulty swallowing Genitourinary: Reports: no symptoms Neurologic/Psychiatric: Reports: pre-existing deficit Endocrine: Reports: no symptoms Hematologic/Lymphatic: Reports: no symptoms Allergies: Coded Allergies: No Known Allergies (Unverified , 02/03/17) All Systems: reviewed and negative except above Subjective passed swallow. constipated. low k noted. tachy low 100s Objective Last 24 Hour Vital Signs Date Time Temp Pulse Resp B/P Pulse Ox O2 Delivery O2 Flow Rate FiO2 02/08/17 08:53 114/76 02/08/17 04:00 97.7 97 20 142/77 97 Nasal Cannula 2.0 02/08/17 03:35 113 02/08/17 00:27 98.0 104 20 136/64 95 Nasal Cannula 2.0 02/08/17 00:00 113 02/08/17 00:00 98.0 104 20 136/64 96 Nasal Cannula 2.0 02/07/17 20:00 98.0 102 24 146/84 96 Nasal Cannula 2.0 02/07/17 19:21 Nasal Cannula 2.0 28 02/07/17 19:20 97 Nasal Cannula 2.0 28 02/07/17 19:17 113 7/22/17 16:00 96 02/07/17 16:00 97.9 99 21 148/79 96 Nasal Cannula 2.0 02/07/17 12:00 93 02/07/17 12:00 99.1 101 20 142/79 96 Nasal Cannula 2.0 Intake and Output 02/07/17 02/08/17 19:00 07:00 Intake Total 1587.993 ml 820.000 ml Output Total 2531 ml 450 ml Balance -943.007 ml 370.000 ml Intake Oral 180 ml IV Total 1407.993 ml 820.000 ml Output Urine Total 2531 ml 450 ml # Bowel Movements 1 1 Laboratory Tests 02/08/17 04:05: White Blood Count 10.3, Red Blood Count 4.42, Hemoglobin 14.7, Hematocrit 41.3, Mean Corpuscular Volume 93, Mean Corpuscular Hemoglobin 33.3H, Mean Corpuscular Hemoglobin Concent 35.6, Red Cell Distribution Width 10.6L, Platelet Count 133L , Mean Platelet Volume 10.0, Neutrophils (%) (Auto) 74.4, Lymphocytes (%) (Auto ) 14.9L, Monocytes (%) (Auto) 8.0, Eosinophils (%) (Auto) 2.1, Basophils (%) ( Auto) 0.6, Sodium Level 143, Potassium Level 3.2L, Chloride Level 102, Carbon Dioxide Level 28, Anion Gap 13, Blood Urea Nitrogen 6L, Creatinine 0.7, Estimat Glomerular Filtration Rate , Glucose Level 119#H, Calcium Level 8.9, Magnesium Level 1.9, Total Bilirubin 1.6H, Direct Bilirubin 0.4H, Aspartate Amino Transf ( AST/SGOT) 38, Alanine Aminotransferase (ALT/SGPT) 26, Alkaline Phosphatase 73, Pro-B-Type Natriuretic Peptide 1909H, Total Protein 7.1, Albumin 3.5, Globulin 3.6, Albumin/Globulin Ratio 0.9L Height (Feet): 5 Height (Inches): 0.00 Weight (Pounds): 140 Objective General Appearance: WD/WN, alert, confused Neck: supple Cardiovascular: normal rate, regular rhythm Respiratory/Chest: chest wall non-tender, lungs clear, normal breath sounds, no respiratory distress Abdomen: normal bowel sounds, non tender, soft, no organomegaly Edema: no edema noted Arm (L), no edema noted Arm (R), no edema noted Leg (L), no edema noted Leg (R), no edema noted Pedal (L), no edema noted Pedal (R), no edema noted 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
[2017-02-08] MEDS ORDERED: Levemir Flexpen SUBQ SCH ×2 (21:00)
--- NOTE | 2017-02-09 03:46 | Progress Note ---
DATE: 02/08/2017 CARDIOLOGY PROGRESS NOTE SUBJECTIVE: The patient's condition continues to slowly progress. She is in no respiratory distress. She is tolerating a diet. Her appetite is fair. She remains on iron intravenous fluids as well as insulin support. OBJECTIVE: VITALS: Blood pressure 86/56, earlier 108/68, heart rate 90, respiratory rate 18, and afebrile. HEENT: Temporal wasting. Oropharynx clear. NECK: Supple. LUNGS: Clear. CARDIAC: Regular. Normal S1 and S2. ABDOMEN: Soft. EXTREMITIES: No edema. Good perfusion of the digits. LABORATORY DATA: White count 10 and hemoglobin 14. Sodium 143, potassium 3.3, bicarb 28, BUN 6, creatinine 0.7, and glucose 119. Magnesium 1.9. Pro-natriuretic peptide 1900. Albumin 3.5. IMPRESSION: 1. Resolved dehydration and hypernatremia. 2. Hypokalemia. 3. Acute diastolic congestive heart failure. 4. Status post hyperosmolar nonketotic coma with bwj-hywfhkt-mgoepupar diabetes mellitus. 5. Probably baseline low range blood pressure. PLAN: 1. Discontinue IV fluids. 2. Encourage oral intake. 3. Potassium replacement. 4. Hold diuresis. 5. Titrate insulin. 6. Mobilize. 7. Fluid challenge for symptomatic hypotension only. Bradly Dave M.D. DR: TOBY JOB#: [id number] CC:
[2017-02-09 04:00] VITALS: BP 145/70
[2017-02-09] MEDS ORDERED: Vancomycin 1.5gm/D5W 250ml 250 ML IVPB SCH (06:00)
[2017-02-09 07:09] LABS: ALANINE AMINOTRANSFERASE 23 U/L (3-33); ALBUMIN/GLOBULIN RATIO 0.9 (1.0-2.7); ANION GAP 12 (5-15); ASPARTATE AMINO TRANSFERASE 31 U/L (5-40); CALCIUM 8.6 mg/dL (8.6-10.2); CARBON DIOXIDE 25 mEQ/L (20-30); CHLORIDE 101 mEQ/L (98-107); CREATININE 0.9 mg/dL (0.5-0.9); HEMOLYSIS 17; POTASSIUM 3.8 mEQ/L (3.4-4.9); SODIUM 138 mEQ/L (135-145); TOTAL PROTEIN 6.2 g/dL (6.6-8.7)
[2017-02-09] MEDS: NovoLOG Insulin Flexpen SUBQ SCH ×2 (07:18→12:29)
[2017-02-09 07:26] LABS: BILIRUBIN,DIRECT 0.3 mg/dL (0.1-0.3)
[2017-02-09 07:58] VITALS: BP 158/70
[2017-02-09] MEDS ORDERED: ASPIRIN81 MG ORAL (08:25)
[2017-02-09] MEDS ORDERED: LANSOPRAZOLE30 MG ORAL (08:25)
[2017-02-09] MEDS ORDERED: LANTUS SOL100 UNIT/1 SUBQ (08:25)
[2017-02-09] MEDS ORDERED: LEVOFLOXACIN500 MG ORAL (08:25)
[2017-02-09] MEDS ORDERED: COZAAR50 MG ORAL (08:25)
[2017-02-09] MEDS ORDERED: Losartan 50mg tab ORAL SCH (09:00)
[2017-02-09] MEDS ORDERED: Aspirin Baby 81mg ORAL SCH (09:00)
--- NOTE | 2017-02-09 09:15 | Diagnostic Imaging Report ---
Indication: ABD PAIN Technique: Ultrasound of the abdomen. Comparison: None Findings: Liver: The liver is normal in size and echogenicity. No focal abnormalities are noted. Gallbladder: The gallbladder is normal. No stones are visualized. The wall is not thickened. Common bile duct: Normal in size. Pancreas: The visualized portion of pancreas is normal in echogenicity. There are no masses. Kidneys: An anechoic mass with through transmission and good larsen is noted in the right kidney measuring approximately 4.5 cm. The right kidney measures 8.8 cm. Left kidney measures 8.3 cm. Spleen: The spleen is normal in size and echogenicity. Aorta: The visualized portion of the aorta is normal in caliber. IVC: The demonstrated portion of the inferior vena cava is normal. Impression: Small kidneys bilaterally. Right renal cyst. Otherwise negative.
[2017-02-09] MEDS: Vitamin A&D Oint 2oz Tube TOPIC SCH (09:25)
[2017-02-09 11:27] VITALS: BP 136/73
--- NOTE | 2017-02-09 21:46 | Progress Note ---
DATE: 02/09/2017 CARDIOLOGY PROGRESS NOTE SUBJECTIVE: The patient is without any shortness of breath or chest pain. Glucose control is adequate. Oral intake is improving. OBJECTIVE: VITAL SIGNS: Blood pressure 158/70, now 136/73, heart rate 84, and respiratory rate 18. No fevers. Room air oxygen sat 95%. NECK: Supple. LUNGS: Clear. CARDIAC: Regular. Normal S1 and S2 with a fourth heart sound. ABDOMEN: Soft. EXTREMITIES: No edema. LABORATORY DATA: Pro-natriuretic peptide is down to 930, albumin 3.0, potassium 3.8, BUN 11, creatinine 0.9, and glucose 170. IMPRESSION AND PLAN: 1. Nonketotic hyperosmolar coma with glucose over 900, now corrected. 2. Mild protein-calorie malnutrition. 3. Acute on chronic diastolic congestive heart failure, improved and clinically compensated. 4. Hypertensive heart disease with adequate control of blood pressure. 5. Dehydration and hypovolemia resolved. 6. Insulin-requiring diabetes mellitus with titrating doses of insulin ongoing as intake is variable. 7. Plan of care in place for discharge to [facility] facility. Orders reviewed. Updated the patient's primary care physician, Dr. Weathers, with hospital course and further plan of care. Bradly Dave M.D. DR: TOBY JOB#: [id number] CC:
--- NOTE | 2017-02-09 22:01 | Discharge Summary ---
DATE OF ADMISSION: 02/03/2017 DATE OF DISCHARGE: 02/09/2017 ADMISSION DIAGNOSES: 1. Diabetic ketoacidosis. 2. Respiratory failure. 3. Possible sepsis. 4. Hypertension. DISCHARGE DIAGNOSES: 1. Diabetic ketoacidosis. 2. Respiratory failure. 3. Possible sepsis. 4. Hypertension. HOSPITAL COURSE: The patient is an unfortunate female with complaints of respiratory distress. She was noted to be severely dehydrated, hypernatremic, and possible diabetic ketoacidosis. She was treated with IV hydration and broad-spectrum IV antibiotics. Cultures were followed up and returned back negative. The patient initially required placement on BiPAP, which she was weaned. On discharge, she was doing well. She will be discharged on long-acting insulin and oral Levaquin for seven more days. DISCHARGE MEDICATIONS: Please see discharge medication list for discharge medications. DIET: A diabetic cardiac diet. ACTIVITIES: Ad-vero. FOLLOWUP: The patient will be followed up by her PMD at the detention facility. Harjeet Leija M.D. DR: CASSY JOB#: [id number] CC:
--- NOTE | 2017-02-11 08:48 | Diagnostic Imaging Report ---
Indications: DYSPHAGIA Technique: Patient ingested multiple substances under the supervision of speech pathology. Video fluoroscopic recording performed. Total fluoroscopy time 243 seconds. Total dose area product 0.65305 mGycm2 Comparison: none Findings: Consistent penetration and occasional gaston aspiration of thin liquid barium is demonstrated. There is early pooling in the vallecula and puriform sinuses. There is been clearing of the contrast bolus with swallowing. Consistent penetration, one episode of aspiration of nectar thick liquid barium demonstrated. Early pooling in the vallecula and puriform sinuses. The clearing of contrast bolus with swallowing. Consistent penetration with honey thick liquid barium. Early pooling with barium pur?e and masticated solid, no aspiration or penetration Impression: Positive for penetration and aspiration of multiple substances, as described. Please refer to speech pathology report for more detailed analysis
--- NOTE | 2017-02-12 07:42 | Cardiology Report ---
APPROVED REPORT EXAM: Two-dimensional and M-mode echocardiogram with Doppler and color Doppler. INDICATION Congestive Heart Failure M-Mode DIMENSIONS IVSd1.5 (0.7-1.1cm)Left Atrium (MM)4.6 (1.6-4.0cm) LVDd4.4 (3.5-5.6cm)Aortic Root2.5 (2.0-3.7cm) PWd1.1 (0.7-1.1cm)Aortic Cusp Exc.1.5 (1.5-2.0cm) LVDs2.4 (2.5-4.0cm) PWs2.2 cm Technically difficult study due to poor acoustic windows. Study quality precludes accurate assessment of regional wall motion. Normal left ventricular chamber size, systolic function and wall motion. Left ventricular ejection fraction estimated to be 60 %. Mild left ventricular hypertrophy. Anterior Echo-free space, may be due to pericardial fat or effusion. All other cardiac chamber sizes are within normal limits. Mild focal aortic valve sclerosis with adequate cusp excursion. Mildly thickened mitral valve leaflets with normal excursion. Mild mitral annulus and aortic root calcification. Pulmonic valve not visualized. Normal tricuspid valve structure. IVC dilated at 2.1 cm with physiologic collapse. A color flow and spectral Doppler study was performed and revealed: Mild to moderate aortic regurgitation. Trace mitral regurgitation. Mitral diastolic velocities suggest reduced left ventricular relaxation (Grade I). Mild tricuspid regurgitation. Tricuspid systolic velocities suggests peak right ventricular systolic pressure of 31 mmHg.
== END 2017-02-09 13:35 | DRG 871 ==
LOC: EDBD 13:46 → EMR 14:19 → 2W 14:24 → EDBEDREQ 17:13 → 2W 02-05 18:41 → 2E 02-08 10:03
PROC: 5A09357 Assistance with Respiratory Ventilation, Less than 24 Consecutive Hours, Continuous Positive Airway Pressure (ICD-10-PCS; principal; 2017-02-03)
DX: A41.9 Sepsis, unspecified organism (principal); J96.90 Respiratory failure, unspecified, unspecified whether with hypoxia or hypercapnia; N17.0 Acute kidney failure with tubular necrosis; J69.0 Pneumonitis due to inhalation of food and vomit; R65.21 Severe sepsis with septic shock; E44.1 Mild protein-calorie malnutrition; R13.10 Dysphagia, unspecified; I50.33 Acute on chronic diastolic (congestive) heart failure; E13.10 Other specified diabetes mellitus with ketoacidosis without coma; E87.0 Hyperosmolality and hypernatremia; I47.1 Supraventricular tachycardia; E86.0 Dehydration; Z79.4 Long term (current) use of insulin; D64.9 Anemia, unspecified; Z66 Do not resuscitate; F01.50 Vascular dementia, unspecified severity, without behavioral disturbance, psychotic disturbance, mood disturbance, and anxiety; E86.1 Hypovolemia; E87.8 Other disorders of electrolyte and fluid balance, not elsewhere classified; I11.0 Hypertensive heart disease with heart failure
CPT/HCPCS: 36415; 36600; 71010; 74230; 76700; 80053; 80202; 81003; 82248; 82550; 82553; 82803; 82962; 83036; 83605; 83735; 83880; 84100; 84443; 84484; 85025; 87040; 87081; 93005; 93306; 93970; 94660; 94760; J1815; J8499; S5561

== ENCOUNTER 2017-02-11 21:16 | Inpatient (IN) | payer MEDICARE, OTHER ==
[~2017-02-11] VITALS: Ht 167.6 cm; Wt 63.5 kg
[~2017-02-11 21:16] MED LIST: ACETAMINOPHEN325 M1 ORAL; ASPIRIN81 MG ORAL; ATORVASTATIN CA20 MG ORAL; COZAAR50 MG ORAL; DOCUSATE SODIU100 MG ORAL; DULCOLAX10 MG RC; DUONEB 0.5-3(2.53 ML HHN; FLEET ENEMA133 ML RECTAL; IBUPROFEN200 MG ORAL; LANSOPRAZOLE30 MG ORAL; LANTUS SOL100 UNIT/1 SUBQ; LEVOFLOXACIN500 MG ORAL; LOSARTAN POTASS25 MG ORAL; MILK OF MA2400 MG/10 ORAL; MULTIVITAMINS1 EAC8 ORAL; NAMENDA10 MG ORAL; NORCO 5-325 TA1 EAC1 ORAL; ROBITUSSIN COU237 M1 PO
--- NOTE | 2017-02-11 21:27 | Emergency Room Report ---
History of Present Illness General Chief Complaint: Dyspnea/Respdistress Source: Medical Record, EMS Present Illness HPI Is an 86-year-old female resides in a detention. She is a DO NOT RESUSCITATE /DO NOT INTUBATE Comfort Care only. She was just discharged from the hospital for pneumonia and sepsis. She presents with chief complaint of increasing shortness of breath and hypoxia. Per EMS room air oxygenation was in the mid 80 percentile. Patient does have some dyspnea but otherwise no other complaint. History is limited because of her dementia. There was no noted fever in a detention note. Allergies: Coded Allergies: No Known Allergies (Unverified , 02/03/17) Patient History Past Medical History: see triage record, old chart reviewed, HTN, CAD, pneumonia, dementia Past Surgical History: other Pertinent Family History: none Social History: Denies: smoking Last Menstrual Period: ukn Now: No Immunizations: other Reviewed Nursing Documentation: PMH: Agreed, PSxH: Agreed Nursing Documentation-PMH Past Medical History: No History, Except For Hx Hypertension: Yes - S/P acute fx right superior and inferior pubic rami Hx Diabetes: Yes Hx Gastrointestinal Problems: Yes - dysphagia Hx Neurological Problems: Yes - DEMENTIA Review of Systems Eye: Denies: blurred vision, eye pain ENT: Denies: ear pain, nose congestion, throat swelling Respiratory: Reports: shortness of breath, Denies: cough Cardiovascular: Denies: chest pain, palpitations Gastrointestinal: Denies: abdominal pain, diarrhea, nausea, vomiting Musculoskeletal: Denies: back pain, joint pain Skin: Denies: rash Neurological: Denies: headache, numbness Endocrine: Denies: increased thirst, increased urine Hematologic/Lymphatic: Denies: easy bruising All Other Systems: negative except mentioned in HPI Physical Exam Vital Signs Date Time Temp Pulse Resp B/P Pulse Ox O2 Delivery O2 Flow Rate FiO2 02/11/17 21:16 98.4 110 22 147/80 98 Nasal Cannula 6.0 vitals with tachycardia and hypoxia Sp02 EP Interpretation: abnormal General Appearance: mild distress Head: normocephalic, atraumatic Eyes: bilateral eye EOMI, bilateral eye PERRL ENT: hearing grossly normal, normal pharynx Neck: full range of motion, supple, no meningismus Respiratory: chest non-tender, respiratory distress, accessory muscle use Cardiovascular #1: regular rate, rhythm, no murmur, tachycardia Gastrointestinal: normal bowel sounds, non tender, no mass, no organomegaly, no bruit, non-distended Musculoskeletal: back normal, normal range of motion Neurologic: alert Psychiatric: mood/affect normal Skin: warm/dry Procedures Critical Care Time Critical Care Time Critical care is mandated in this patient who presented with sepsis and CHF. Patient require my urgent intervention to attenuate the risks of metabolic collapse which may lead to cardiovascular collapse and . Critical care time is 35 minutes excluding any reportable procedure. Critical care time included evaluation, multiple reevaluation, looking at old charts, interpreting laboratory and diagnostic data, discussing case with patient and family and consultants, and charting. Medical Decision Making Diagnostic Impression: Primary Impression: Respiratory distress Additional Impressions: Aspiration pneumonia Qualified Codes: J69.0 - Pneumonitis due to inhalation of food and vomit CHF (congestive heart failure) Qualified Codes: I50.9 - Heart failure, unspecified Hyperglycemia due to type 2 diabetes mellitus Qualified Codes: E11.65 - Type 2 diabetes mellitus with hyperglycemia ER Course Patient presents with sepsis probably secondary to aspiration pneumonia he has component CHF also. Antibiotics given. IV fluid given. Patient appear to be improving. Lab Results Impression labs show elevated lactic acid. EKG Diagnostic Results EKG Time: 00:03 Rate: normal Rhythm: NSR ST Segments: no acute changes Rhythm Strip Diag. Results Rhythm Strip Time: 00:03 EP Interpretation: yes Rhythm: NSR, no PVC's, no ectopy Chest X-Ray Diagnostic Results Chest X-Ray Diagnostic Results : Chest X-Ray Ordered: Yes # of Views/Limited/Complete: 1 View Indication: Shortness of Breath EP Interpretation: Yes Interpretation: no effusion, no pneumothorax, other - RLL infiltrates. vasc congestion Impression: Other - RLL infiltrate Interpreting ER Provider: Electronically signed by Saroj Masters MD Last Vital Signs Date Time Temp Pulse Resp B/P Pulse Ox O2 Delivery O2 Flow Rate FiO2 02/11/17 21:16 98.4 110 22 147/80 98 Nasal Cannula 6.0 Status: improved Disposition: ADMITTED INPATIENT Condition: Serious SAROJ MASTERS M.D. Feb 11, 2017 21:27
[2017-02-11] MEDS ORDERED: Albuterol ud Inhalation HHN ONE (21:30)
[2017-02-11 21:42] VITALS: BP 147/80
[2017-02-11 21:53] LABS: MEAN CORPUSCULAR HEMOGLOBIN 32.1 PG (27.0-31.0); MEAN CORPUSCULAR HGB CONC 33.6 G/DL (32.0-36.0); MEAN CORPUSCULAR VOLUME 95 FL (80-99); MEAN PLATELET VOLUME 7.8 FL (6.5-10.1); PLATELET COUNT 187 K/UL (150-450); RED BLOOD COUNT 4.29 M/UL (4.20-5.40); RED CELL DISTRIBUTION WIDTH 11.9 % (11.6-14.8); WHITE BLOOD COUNT 11.1 K/UL (4.8-10.8)
[2017-02-11 22:13] LABS: PROTHROMBIN TIME 10.7 SEC (9.30-11.50)
[2017-02-11 22:22] LABS: TROPONIN I < 0.30 ng/mL (<=0.30)
[2017-02-11 22:25] LABS: ALANINE AMINOTRANSFERASE 25 U/L (3-33); ALBUMIN/GLOBULIN RATIO 0.7 (1.0-2.7); ANION GAP 18 (5-15); ASPARTATE AMINO TRANSFERASE 46 U/L (5-40); CALCIUM 9.5 mg/dL (8.6-10.2); CARBON DIOXIDE 22 mEQ/L (20-30); CHLORIDE 96 mEQ/L (98-107); CREATININE 1.1 mg/dL (0.5-0.9); HEMOLYSIS 159; POTASSIUM 4.7 mEQ/L (3.4-4.9); SODIUM 136 mEQ/L (135-145); TOTAL PROTEIN 7.7 g/dL (6.6-8.7)
[2017-02-11 22:25] LABS: APPEARANCE,URINE CLEAR
[2017-02-11 22:26] LABS: KETONES,URINE NEGATIVE (NEGATIVE); LEUKOCYTE ESTERASE ,URINE NEGATIVE (NEGATIVE); NITRITE,URINE NEGATIVE (NEGATIVE); PH,URINE 5 (4.5-8.0); PROTEIN,URINE NEGATIVE (NEGATIVE); UROBILINOGEN,URINE 1 MG/DL (0.0-1.0)
[2017-02-11 22:28] LABS: REFLEX LACTIC ACID YES OR NO YES
[2017-02-11 22:35] LABS: CKMB 6.5 ng/mL (< 3.8)
[2017-02-11 22:39] LABS: BAND NEUTROPHILS % (MANUAL) 3 % (0-8); BASOPHILS % (MANUAL) 0 % (0-2); EOSINOPHILS % (MANUAL) 0 % (0-3); LYMPHOCYTES % (MANUAL) 9 % (20-45); NEUTROPHILS % (MANUAL) 81 % (45-75); PLATELET ESTIMATE ADEQUATE; PLATELET MORPHOLOGY NORMAL; TOTAL CELLS COUNTED 100
[2017-02-11] MEDS ORDERED: Vancomycin 1 GM in NS 275 ML IVPB ONE (22:45)
[2017-02-11] MEDS ORDERED: Piperacillin/Tazobactam 4.5 GM in NS 110 ML IVPB ONE (22:45)
[2017-02-11 22:46] LABS: BILIRUBIN,DIRECT 0.2 mg/dL (0.1-0.3)
[2017-02-11] MEDS ORDERED: Zosyn 4.5gm inj ONE (22:53)
[2017-02-11] MEDS ORDERED: Vancomycin 1gm inj IVPB ONE (23:40)
[2017-02-11 23:54] VITALS: BP 159/73
[2017-02-12] VITALS (7 sets, daily range): BP systolic 100–152; BP diastolic 65–94
[2017-02-12] MEDS ORDERED: Milk of Magnesia 30ml Ud ORAL PRN (02:15)
[2017-02-12] MEDS: DuoNeb 0.5-3(2.5)mg/3ml neb HHN SCH ×6 (03:36→23:10)
[2017-02-12] MEDS ORDERED: Zosyn 3.375gm inj ONE (05:56)
[2017-02-12] MEDS: NovoLOG Insulin Flexpen SUBQ SCH ×4 (06:13→20:51)
[2017-02-12] MEDS: Piperacillin/Tazobactam 3.375 GM in D5W 110 ML IVPB SCH ×3 (06:14→20:55)
[2017-02-12] MEDS: Docusate 100mg cap ORAL SCH ×2 (09:35→17:36)
[2017-02-12] MEDS: Aspirin Baby 81mg ORAL SCH (09:36)
[2017-02-12] MEDS: Memantine 10mg tab ORAL SCH ×2 (09:36→17:36)
[2017-02-12] MEDS: Multivitamin w/Minerals tab ORAL SCH (09:36)
[2017-02-12] MEDS: Losartan 25mg tab ORAL SCH (09:36)
[2017-02-12] MEDS: Heparin 5000 units/ml inj SUBQ SCH ×2 (09:37→20:52)
--- NOTE | 2017-02-12 11:07 | Diagnostic Imaging Report ---
Indications: Shortness of breath Technique: Portable AP chest Findings: Comparison: 1717 Cardiac silhouette remains normal in size. Pulmonary vasculature remains within normal limits. Bilateral interstitial prominence unchanged. Lungs and pleura remain otherwise clear. Calcification and elongation of the thoracic aorta, thoracic vertebral osteophytes, diffuse osteopenia all again noted. IMPRESSION: No evidence of acute disease, unchanged Stable chronic changes as described
--- NOTE | 2017-02-12 14:02 | History and Physical Report ---
DATE OF ADMISSION: 02/11/2017 CHIEF COMPLAINT: CHF and lactic acidosis. HISTORY OF PRESENT ILLNESS: The patient is an 86-year-old female, recently admitted with pneumonia and sepsis. [facility]. She apparently developed shortness of breath, was transferred back to the emergency room. On evaluation there, she had evidence of congestive heart failure. She also had elevated lactic acid level. The white count was only 11,000. In light of the patient's shortness of breath, she is now admitted for further evaluation and care. PAST MEDICAL HISTORY: As above. PAST SURGICAL HISTORY: None. CURRENT MEDICATIONS: Reconciled and reviewed. ALLERGIES: None. FAMILY HISTORY: None. SOCIAL HISTORY: Negative for tobacco, ethanol, or drugs. The patient is DNR. REVIEW OF SYSTEMS: Unobtainable as the patient is confused. PHYSICAL EXAMINATION: VITAL SIGNS: Temperature is 98.7, pulse 104, respirations 20, blood pressure 141/80, and the patient saturating 94% on two liters. GENERAL: The patient is well-developed female, no apparent distress. NECK: Supple. There is mild jugular venous distention. HEART: Regular rate and rhythm. LUNGS: Clear anteriorly. ABDOMEN: Soft, nontender, and nondistended. EXTREMITIES: Without clubbing, cyanosis, or edema. LABORATORY DATA: White count of 11 and hemoglobin 13. Sodium of 136 and creatinine of 1.1. Lactic acid level 4.4. UA was clear. Chest x-ray shows mild congestive heart failure. ASSESSMENT: This is a pleasant female with complaints of shortness of breath secondary to congestive heart failure, cannot rule out a possible underlying pneumonia plus congestive heart failure exacerbation. 1. Respiratory failure. 2. Toxic metabolic encephalopathy. 3. Recent urinary tract infection. 4. Pneumonia. PLAN: IV antibiotics, diuresis, monitor chest x-ray, check swallow evaluation, . Harjeet Leija M.D. DR: CHARU JOB#: [id number] CC:
[2017-02-12] MEDS ORDERED: Tubing IV Secondary IV ONE (17:19)
[2017-02-12] MEDS ORDERED: Vancomycin 1gm/D5W 275ml IVPB SCH ×2 (23:00)
[2017-02-12] MEDS: Vancomycin 750mg/D5W 275ml IVPB SCH ×2 (23:05)
[2017-02-13 00:08] VITALS: BP 110/70
[2017-02-13] MEDS: DuoNeb 0.5-3(2.5)mg/3ml neb HHN SCH ×6 (02:19→23:27)
[2017-02-13 04:15] VITALS: BP 96/56
[2017-02-13] MEDS: NovoLOG Insulin Flexpen SUBQ SCH ×4 (06:00→21:09)
[2017-02-13] MEDS: Piperacillin/Tazobactam 3.375 GM in D5W 110 ML IVPB SCH ×3 (06:01→21:05)
[2017-02-13 07:58] LABS: ALANINE AMINOTRANSFERASE 16 U/L (3-33); ALBUMIN/GLOBULIN RATIO 0.6 (1.0-2.7); ANION GAP 14 (5-15); ASPARTATE AMINO TRANSFERASE 29 U/L (5-40); CALCIUM 7.7 mg/dL (8.6-10.2); CARBON DIOXIDE 25 mEQ/L (20-30); CHLORIDE 99 mEQ/L (98-107); HEMOLYSIS 68; POTASSIUM 3.4 mEQ/L (3.4-4.9); SODIUM 138 mEQ/L (135-145); TOTAL PROTEIN 6.1 g/dL (6.6-8.7)
[2017-02-13 08:00] VITALS: BP 93/61
[2017-02-13 08:02] LABS: BASOPHILS % (AUTO) 0.3 % (0.0-2.0); EOSINOPHILS % (AUTO) 2.2 % (0.0-3.0); LYMPHOCYTES % (AUTO) 16.2 % (20.0-45.0); MEAN CORPUSCULAR HEMOGLOBIN 33.2 PG (27.0-31.0); MEAN CORPUSCULAR VOLUME 95 FL (80-99); MEAN PLATELET VOLUME 7.4 FL (6.5-10.1); MONOCYTES % (AUTO) 6.2 % (1.0-10.0); NEUTROPHILS % (AUTO) 75.1 % (45.0-75.0); PLATELET COUNT 137 K/UL (150-450); RED BLOOD COUNT 3.26 M/UL (4.20-5.40); RED CELL DISTRIBUTION WIDTH 11.8 % (11.6-14.8); WHITE BLOOD COUNT 12.3 K/UL (4.8-10.8)
[2017-02-13 08:40] LABS: BILIRUBIN,DIRECT 0.3 mg/dL (0.1-0.3)
[2017-02-13] MEDS: Heparin 5000 units/ml inj SUBQ SCH ×2 (09:00→20:39)
[2017-02-13] MEDS: Losartan 25mg tab ORAL SCH (09:00)
[2017-02-13] MEDS: Aspirin Baby 81mg ORAL SCH ×2 (09:21→09:34)
[2017-02-13] MEDS: Memantine 10mg tab ORAL SCH ×3 (09:21→17:42)
[2017-02-13] MEDS: Docusate 100mg cap ORAL SCH ×3 (09:21→17:42)
[2017-02-13] MEDS: Multivitamin w/Minerals tab ORAL SCH ×2 (09:21→09:34)
--- NOTE | 2017-02-13 12:54 | General Progress Note ---
Assessment/Plan Problem List: (1) Hypernatremia ICD Codes: E87.0 - Hyperosmolality and hypernatremia SNOMED: 34794032 (2) Respiratory failure ICD Codes: J96.90 - Respiratory failure, unspecified, unspecified whether with hypoxia or hypercapnia SNOMED: 498675685 (3) CHF (congestive heart failure) ICD Codes: I50.9 - Heart failure, unspecified SNOMED: 63375147 Qualifiers: Qualified Codes: I50.9 - Heart failure, unspecified (4) Hyperglycemia due to type 2 diabetes mellitus ICD Codes: E11.65 - Type 2 diabetes mellitus with hyperglycemia SNOMED: 283345066803428, 31042090 Qualifiers: Qualified Codes: E11.65 - Type 2 diabetes mellitus with hyperglycemia (5) Aspiration pneumonia ICD Codes: J69.0 - Pneumonitis due to inhalation of food and vomit SNOMED: 890233136 Qualifiers: Qualified Codes: J69.0 - Pneumonitis due to inhalation of food and vomit (6) Sepsis ICD Codes: A41.9 - Sepsis, unspecified organism SNOMED: 32686462 Status: stable, progressing Assessment/Plan iv lasix abx follow up cxr o2 resp care aspiration precautions skin care add nystatin for rash bp rx dnr Subjective ROS Limited/Unobtainable: No Constitutional: Reports: malaise, weakness HEENT: Reports: no symptoms Cardiovascular: Reports: no symptoms Respiratory: Reports: cough, shortness of breath Gastrointestinal/Abdominal: Reports: difficulty swallowing Genitourinary: Reports: no symptoms Neurologic/Psychiatric: Reports: pre-existing deficit Endocrine: Reports: no symptoms Hematologic/Lymphatic: Reports: anemia Allergies: Coded Allergies: No Known Allergies (Unverified , 02/03/17) All Systems: reviewed and negative except above Subjective decreased uop. less sob. lactic acid level better. no fever or chills. Objective Last 24 Hour Vital Signs Date Time Temp Pulse Resp B/P Pulse Ox O2 Delivery O2 Flow Rate FiO2 02/13/17 11:53 75 18 98 Nasal Cannula 2.0 02/13/17 09:00 96/56 02/13/17 08:00 97.7 93 21 93/61 98 Room Air 02/13/17 07:35 78 18 99 Nasal Cannula 2.0 02/13/17 07:26 71 18 98 Nasal Cannula 2.0 02/13/17 07:26 96 Nasal Cannula 2.0 02/13/17 07:26 Nasal Cannula 2.0 02/13/17 04:15 97.0 89 18 96/56 94 Nasal Cannula 2.0 02/13/17 02:29 94 18 99 Nasal Cannula 2.0 02/13/17 02:19 98 18 98 Nasal Cannula 2.0 02/13/17 00:08 97.9 80 19 110/70 97 Nasal Cannula 2.0 02/12/17 23:19 91 18 99 Nasal Cannula 2.0 02/12/17 23:10 85 18 98 Nasal Cannula 2.0 02/12/17 20:19 97.7 75 18 100/65 98 Nasal Cannula 2.0 02/12/17 19:51 105 18 99 Nasal Cannula 2.0 02/12/17 19:43 Nasal Cannula 2.0 02/12/17 19:43 98 Nasal Cannula 2.0 02/12/17 19:43 75 18 98 Nasal Cannula 2.0 02/12/17 18:26 97.9 100 13 129/76 97 Room Air 02/12/17 15:58 97.2 94 19 113/72 99 Room Air 02/12/17 14:53 97 18 99 Nasal Cannula 2.0 02/12/17 14:48 95 18 97 Nasal Cannula 2.0 Intake and Output 02/12/17 02/13/17 19:00 07:00 Intake Total 842.5 ml 885.000 ml Output Total 3350 ml 300 ml Balance -2507.5 ml 585.000 ml Intake Oral 250 ml 0 ml IV Total 592.5 ml 885.000 ml Output Urine Total 3350 ml 300 ml # Bowel Movements 2 Laboratory Tests 02/13/17 05:00: White Blood Count 12.3H, Red Blood Count 3.26L, Hemoglobin 10.8L, Hematocrit 30.9L, Mean Corpuscular Volume 95, Mean Corpuscular Hemoglobin 33.2H, Mean Corpuscular Hemoglobin Concent 35.0, Red Cell Distribution Width 11.8, Platelet Count 137L, Mean Platelet Volume 7.4, Neutrophils (%) (Auto) 75.1H, Lymphocytes (%) (Auto) 16.2L, Monocytes (%) (Auto) 6.2, Eosinophils (%) (Auto) 2.2, Basophils (%) (Auto) 0.3, Sodium Level 138, Potassium Level 3.4, Chloride Level 99, Carbon Dioxide Level 25, Anion Gap 14, Blood Urea Nitrogen 12, Creatinine 1.0H, Estimat Glomerular Filtration Rate , Glucose Level 133#H, Calcium Level 7.7L, Magnesium Level 1.5L, Total Bilirubin 1.2, Direct Bilirubin 0.3, Aspartate Amino Transf (AST/SGOT) 29, Alanine Aminotransferase (ALT/SGPT) 16, Alkaline Phosphatase 63, Pro-B-Type Natriuretic Peptide 2234H, Total Protein 6.1L, Albumin 2.5L, Globulin 3.6, Albumin/Globulin Ratio 0.6L 02/13/17 08:53: Lactic Acid Level 1.30 Height (Feet): 5 Height (Inches): 6.00 Weight (Pounds): 140 General Appearance: WD/WN, alert EENT: PERRL/EOMI Neck: non-tender, normal alignment, supple Cardiovascular: regular rhythm Respiratory/Chest: chest wall non-tender, lungs clear, normal breath sounds, no respiratory distress Abdomen: normal bowel sounds, non tender, soft, no organomegaly Edema: no edema noted Arm (L), no edema noted Arm (R), no edema noted Leg (L), no edema noted Leg (R), no edema noted Pedal (L), no edema noted Pedal (R), no edema noted 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
[2017-02-13] MEDS ORDERED: Nystatin Powder 100,000 units/gm 15gm TOPIC SCH (13:00)
[2017-02-13 13:56] VITALS: BP 103/55
[2017-02-13] MEDS: Nystatin Powder 100,000 units/gm 15gm TOPIC SCH (17:43)
--- NOTE | 2017-02-13 19:53 | Wound Care Consultation ---
Wound Assessment Wound Assessment #1: Wound Number: #1 Wound Present on Admission: Yes New Wound: No Status Change of Wound: No Wound Location Body Site Modif: mid Wound Location Body Site: sacral Wound Type: pressure ulcer Bj Test: Does not Bj Pressure Ulcer Stage: deep tissue injury Wound Thickness: Full Thickness Wound Length: 3.5 Wound Width: 3.0 Wound Depth: utd Percent of Wound Purple/Maroon: 100 Wound Drainage Amount: None Wound Drainage Odor: None/Absent Tissue Surrounding Wound: Erythemic Wound General Appearance: Reddened - purple Wound Assessment #2: Wound Number: #2 Wound Present on Admission: Yes New Wound: No Status Change of Wound: No Wound Location Body Site: perineal area Wound Type: erosion Bj Test: Does not Bj Percent of Wound [place]/Red: 100 Wound Drainage Amount: None Wound Drainage Odor: None/Absent Tissue Surrounding Wound: Erythemic Wound General Appearance: Reddened Wound Comment #1 Sacral DTI pressure ulcer #2 Perineal erosion that extended sacral and to both left and right buttocks Recommendation -Keep clean and dry -Turn and reposition -Local wound care per protocol -Offload both heels -Heel protocol for both heels -Optimize nutrition -Assess and f/u accordingly for any changes FAINA FRANCOIS RN Feb 13, 2017 19:53
[2017-02-13 21:00] VITALS: BP 114/69
[2017-02-13] MEDS: Vancomycin 750mg/D5W 275ml IVPB SCH ×2 (23:02)
[2017-02-14] MEDS: DuoNeb 0.5-3(2.5)mg/3ml neb HHN SCH ×6 (03:00→23:56)
[2017-02-14 04:00] VITALS: BP 116/71
[2017-02-14] MEDS: Piperacillin/Tazobactam 3.375 GM in D5W 110 ML IVPB SCH ×3 (05:59→22:02)
[2017-02-14] MEDS: NovoLOG Insulin Flexpen SUBQ SCH ×4 (06:00→22:08)
[2017-02-14] MEDS: Memantine 10mg tab ORAL SCH ×2 (08:31→16:57)
[2017-02-14] MEDS: Docusate 100mg cap ORAL SCH ×2 (08:31→16:56)
[2017-02-14] MEDS: Multivitamin w/Minerals tab ORAL SCH (08:31)
[2017-02-14] MEDS: Heparin 5000 units/ml inj SUBQ SCH ×2 (08:31→22:07)
[2017-02-14] MEDS: Losartan 25mg tab ORAL SCH (08:31)
[2017-02-14] MEDS: Aspirin Baby 81mg ORAL SCH (08:31)
[2017-02-14] MEDS: Nystatin Powder 100,000 units/gm 15gm TOPIC SCH ×3 (08:32→17:01)
--- NOTE | 2017-02-14 08:49 | General Progress Note ---
Assessment/Plan Problem List: (1) Hypernatremia ICD Codes: E87.0 - Hyperosmolality and hypernatremia SNOMED: 95878696 (2) Respiratory failure ICD Codes: J96.90 - Respiratory failure, unspecified, unspecified whether with hypoxia or hypercapnia SNOMED: 666709354 (3) CHF (congestive heart failure) ICD Codes: I50.9 - Heart failure, unspecified SNOMED: 80443613 Qualifiers: Qualified Codes: I50.9 - Heart failure, unspecified (4) Hyperglycemia due to type 2 diabetes mellitus ICD Codes: E11.65 - Type 2 diabetes mellitus with hyperglycemia SNOMED: 282677053786263, 43803971 Qualifiers: Qualified Codes: E11.65 - Type 2 diabetes mellitus with hyperglycemia (5) Aspiration pneumonia ICD Codes: J69.0 - Pneumonitis due to inhalation of food and vomit SNOMED: 662496899 Qualifiers: Qualified Codes: J69.0 - Pneumonitis due to inhalation of food and vomit (6) Sepsis ICD Codes: A41.9 - Sepsis, unspecified organism SNOMED: 02057504 Assessment/Plan cont iv lasix abx follow up cxr o2 resp care aspiration precautions skin care add nystatin for rash bp rx dc planning tomorrow if stable Subjective ROS Limited/Unobtainable: No Constitutional: Reports: malaise, weakness HEENT: Reports: no symptoms Cardiovascular: Reports: no symptoms Respiratory: Reports: cough, shortness of breath Gastrointestinal/Abdominal: Reports: no symptoms Genitourinary: Reports: no symptoms Neurologic/Psychiatric: Reports: pre-existing deficit Endocrine: Reports: no symptoms Hematologic/Lymphatic: Reports: anemia Allergies: Coded Allergies: No Known Allergies (Unverified , 02/03/17) All Systems: reviewed and negative except above Subjective no events. awake. no cp/sob. Objective Last 24 Hour Vital Signs Date Time Temp Pulse Resp B/P Pulse Ox O2 Delivery O2 Flow Rate FiO2 02/14/17 08:31 116/71 02/14/17 07:35 98 16 99 Nasal Cannula 2.0 02/14/17 07:30 90 18 84 Room Air 2.0 02/14/17 07:30 Nasal Cannula 2.0 02/14/17 07:30 98 Nasal Cannula 2.0 02/14/17 04:00 97.8 89 18 116/71 95 Nasal Cannula 2.0 02/14/17 03:03 98 16 99 Nasal Cannula 2.0 02/14/17 02:58 91 18 84 Room Air 2.0 02/13/17 23:23 91 16 100 Nasal Cannula 2.0 02/13/17 23:12 96 16 88 Nasal Cannula 2.0 02/13/17 21:00 98.2 87 20 114/69 99 Nasal Cannula 02/13/17 19:01 89 18 99 Nasal Cannula 2.0 02/13/17 18:54 99 Nasal Cannula 2.0 02/13/17 18:53 Nasal Cannula 2.0 02/13/17 18:50 88 16 99 Nasal Cannula 2.0 02/13/17 15:44 80 18 99 Nasal Cannula 2.0 02/13/17 15:35 83 18 98 Nasal Cannula 2.0 02/13/17 13:56 97.2 108 22 103/55 94 Nasal Cannula 02/13/17 12:03 83 18 99 Nasal Cannula 2.0 02/13/17 11:53 75 18 98 Nasal Cannula 2.0 02/13/17 09:00 96/56 Intake and Output 02/13/17 02/14/17 19:00 07:00 Intake Total 492.5 ml 885.000 ml Output Total 2685 ml 925 ml Balance -2192.5 ml -40.000 ml IV Total 492.5 ml 885.000 ml Output Urine Total 2685 ml 925 ml # Bowel Movements 1 Laboratory Tests 02/13/17 08:53: Lactic Acid Level 1.30 Height (Feet): 5 Height (Inches): 6.00 Weight (Pounds): 140 Objective General Appearance: WD/WN, alert EENT: PERRL/EOMI Neck: non-tender, normal alignment, supple Cardiovascular: regular rhythm Respiratory/Chest: chest wall non-tender, lungs clear, normal breath sounds, no respiratory distress Abdomen: normal bowel sounds, non tender, soft, no organomegaly Edema: no edema noted Arm (L), no edema noted Arm (R), no edema noted Leg (L), no edema noted Leg (R), no edema noted Pedal (L), no edema noted Pedal (R), no edema noted 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
[2017-02-14 08:53] VITALS: BP 125/71
[2017-02-14] MEDS ORDERED: Tubing IV Secondary IV ONE (09:45)
[2017-02-14] MEDS ORDERED: NS 275ml ONE (09:45)
[2017-02-14 10:49] LABS: BASOPHILS % (AUTO) 0.4 % (0.0-2.0); EOSINOPHILS % (AUTO) 2.7 % (0.0-3.0); LYMPHOCYTES % (AUTO) 9.3 % (20.0-45.0); MEAN CORPUSCULAR HEMOGLOBIN 32.8 PG (27.0-31.0); MEAN CORPUSCULAR VOLUME 94 FL (80-99); MEAN PLATELET VOLUME 6.7 FL (6.5-10.1); MONOCYTES % (AUTO) 5.8 % (1.0-10.0); NEUTROPHILS % (AUTO) 81.8 % (45.0-75.0); PLATELET COUNT 181 K/UL (150-450); RED BLOOD COUNT 3.84 M/UL (4.20-5.40); RED CELL DISTRIBUTION WIDTH 11.5 % (11.6-14.8); WHITE BLOOD COUNT 10.8 K/UL (4.8-10.8)
[2017-02-14 11:10] LABS: ALANINE AMINOTRANSFERASE 15 U/L (3-33); ALBUMIN/GLOBULIN RATIO 0.7 (1.0-2.7); ANION GAP 12 (5-15); ASPARTATE AMINO TRANSFERASE 24 U/L (5-40); CALCIUM 8.3 mg/dL (8.6-10.2); CARBON DIOXIDE 27 mEQ/L (20-30); CHLORIDE 95 mEQ/L (98-107); CREATININE 0.9 mg/dL (0.5-0.9); HEMOLYSIS 2; POTASSIUM 2.8 mEQ/L (3.4-4.9); SODIUM 134 mEQ/L (135-145); TOTAL PROTEIN 6.9 g/dL (6.6-8.7)
[2017-02-14 11:24] LABS: BILIRUBIN,DIRECT 0.5 mg/dL (0.1-0.3)
[2017-02-14 12:30] VITALS: BP 114/71
[2017-02-14 16:29] VITALS: BP 133/70
[2017-02-14 19:53] VITALS: BP 113/67
[2017-02-14] MEDS: Vancomycin 750mg/D5W 275ml IVPB SCH ×2 (23:48)
[2017-02-15] MEDS: DuoNeb 0.5-3(2.5)mg/3ml neb HHN SCH ×4 (03:17→15:32)
[2017-02-15 04:00] VITALS: BP 152/81
[2017-02-15] MEDS: Piperacillin/Tazobactam 3.375 GM in D5W 110 ML IVPB SCH ×2 (06:05→14:38)
[2017-02-15] MEDS: NovoLOG Insulin Flexpen SUBQ SCH ×3 (06:19→17:07)
[2017-02-15 08:15] VITALS: BP 161/82
[2017-02-15] MEDS ORDERED: NS 550ML IV ONE (08:15)
[2017-02-15] MEDS ORDERED: Tubing IV Secondary IV ONE ×2 (08:15→19:02)
[2017-02-15] MEDS: Aspirin Baby 81mg ORAL SCH (09:33)
[2017-02-15] MEDS: Multivitamin w/Minerals tab ORAL SCH (09:33)
[2017-02-15] MEDS: Losartan 25mg tab ORAL SCH (09:34)
[2017-02-15] MEDS: Memantine 10mg tab ORAL SCH ×2 (09:34→17:06)
[2017-02-15] MEDS: Docusate 100mg cap ORAL SCH ×2 (09:34→17:06)
[2017-02-15] MEDS: Heparin 5000 units/ml inj SUBQ SCH (09:36)
[2017-02-15] MEDS: Nystatin Powder 100,000 units/gm 15gm TOPIC SCH ×3 (09:41→17:08)
[2017-02-15 11:40] VITALS: BP 111/66
[2017-02-15] MEDS ORDERED: LASIX40 MG ORAL (12:35)
--- NOTE | 2017-02-15 12:38 | Discharge Summary ---
Discharge Summary Hospital Course Date of Admission Feb 11, 2017 at 23:04 Date of Discharge 02/15/17 Admitting Diagnosis sepsis HPI Kana Claire is a 86 year old female who was admitted on Feb 11, 2017 at 23:04 for Sepsis Hospital Course 86 yo female admitted with chf. also treated for possible pna and sespsis. cxr negative. sll cultures negative. sob improved with diuresis and abx dc back to snf on oral abx and diuretics. Discharge Condition Upon Discharge: stable Discharge Disposition Patient was discharged to Discharge Diagnoses: YOKO OROZCO Feb 15, 2017 12:38
[2017-02-15 16:00] VITALS: BP 124/68
[2017-02-15 17:24] VITALS: BP 124/68
[2017-02-15] MEDS ORDERED: Vancomycin 1gm/D5W 275ml IVPB SCH ×2 (20:00)
== END 2017-02-15 19:03 | DRG 871 ==
LOC: EDBD 21:16 → EMR 22:13 → 4W 23:04 → EDBEDREQ 23:43 → 4E 02-14 15:00
DX: A41.9 Sepsis, unspecified organism (principal); J96.90 Respiratory failure, unspecified, unspecified whether with hypoxia or hypercapnia; J69.0 Pneumonitis due to inhalation of food and vomit; G92 Toxic encephalopathy; E87.0 Hyperosmolality and hypernatremia; I50.9 Heart failure, unspecified; Z66 Do not resuscitate; E11.65 Type 2 diabetes mellitus with hyperglycemia
CPT/HCPCS: 36415; 71010; 80053; 80202; 81003; 82248; 82550; 82553; 82962; 83036; 83605; 83735; 83880; 84484; 85007; 85025; 85610; 85730; 87040; 87081; 93005; 94640; 94664; 94760; J1815; J7620; J8499